=== PATIENT | female | born 1965 | race Asian ===

== ENCOUNTER 2016-08-01 14:51 | Outpatient (CLI) | payer BC | END 2016-08-01 14:52 | disposition home or self-care (01) | DX: M85.89 Other specified disorders of bone density and structure, multiple sites (principal); Z85.3 Personal history of malignant neoplasm of breast; Z79.811 Long term (current) use of aromatase inhibitors; Z78.0 Asymptomatic menopausal state ==

== ENCOUNTER 2016-08-16 01:27 | Emergency (ER) | payer BC ==
[2016-08-16] MEDS ORDERED: ONDANSETRON 4 MG/2 ML VIAL IVP STA (02:40)
[2016-08-16] MEDS ORDERED: SODIUM CHLORIDE 0.9% 1,000 ML IV STA (02:40)
[2016-08-16] MEDS ORDERED: ONDANSETRON 4 MG/2 ML VIAL ONE (02:51)
[2016-08-16] MEDS ORDERED: SODIUM CHLORIDE 0.9% 1,000 ML IV ONE (02:51)
[2016-08-16] MEDS ORDERED: HYDROmorphone 1 MG/ML SYRINGE ONE (02:59)
[2016-08-16] MEDS ORDERED: HYDROmorphone 1 MG/ML SYRINGE IVP STA (03:02)
[2016-08-16] MEDS ORDERED: ONDANSETRON ODT 4 MG Prepack 2 TL STA (05:40)
[2016-08-16] MEDS ORDERED: ONDANSETRON ODT 4 MG Prepack 2 TL ONE (05:43)
== END 2016-08-16 05:54 | disposition home or self-care (01) ==
DX: R10.13 Epigastric pain (principal); R10.11 Right upper quadrant pain; R11.2 Nausea with vomiting, unspecified; I10 Essential (primary) hypertension
CPT/HCPCS: 36415; 76705; 80053; 81001; 83690; 85025; 96361; 96374; 96375; 99284; J1170

== ENCOUNTER 2017-02-03 14:16 | Outpatient (CLI) | payer BC ==
--- NOTE | 2017-02-03 17:21 | Mammography Report ---
DIGITAL DIAGNOSTIC BILATERAL MAMMOGRAM: 02/03/2017 CLINICAL INDICATION: A 51-year-old with personal history of left breast cancer status post lumpectom y and radiation therapy. TECHNIQUE: Bilateral CC and MLO views, left true lateral view. COMPARISON: 01/22/2016, 01/18/2015, 01/18/2014, 07/08/2013, 12/14/2012, 01/09/2012, 12/12/2011, 11/25, 12/09/2009, 11/12/2008, 06/09/2007. The breasts again demonstrate scattered fibroglandular densities bilaterally. Postoperative and post -treatment changes in the left upper-outer quadrant are stable. A few coarse, typically benign calci fications are present. No suspicious masses, clustered microcalcifications, or regions of architectu ral distortion are identified. IMPRESSION: BENIGN FINDINGS. RECOMMENDATION: ROUTINE ANNUAL SCREENING UNLESS OTHERWISE CLINICALLY INDICATED. BIRADS CATEGORY: 2, BENIGN FINDINGS. STANDARD QUALIFYING STATEMENTS 1. This examination was reviewed with the aid of Computed-Aided Detection (CAD). 2. A negative or benign imaging report should not delay biopsy if clinically suspicious findings are present. Consider surgical consultation if warranted. More than 5% of cancers are not identified b y imaging. 3. Dense breasts may obscure an underlying neoplasm. JOB #: [id number] EXT JOB #:[id number]
== END 2017-02-03 14:17 | disposition home or self-care (01) ==
LOC: DI 14:16
PROVIDERS: ATTEND Internal Medicine Hematology & Oncology
DX: C50.912 Malignant neoplasm of unspecified site of left female breast (principal)
CPT/HCPCS: 77066

== ENCOUNTER 2018-02-16 15:54 | Outpatient (CLI) | payer BC ==
--- NOTE | 2018-02-18 08:35 | Mammography Report ---
Procedure Date: 02/16/2018 Accession Number: [id number] / [id number] Procedure: [facility] - Screening Mammo Dig Bilat CPT Code: FULL RESULT: EXAM: Screening Mammo Dig Bilat DATE: 02/16/2018 4:10 PM CLINICAL HISTORY: 52-year-old female with personal history of left breast cancer status post lumpectomy and radiation as well as a family history of breast cancer in an aunt at age 18. The patient presents for screening mammography. TECHNIQUE: Bilateral CC and MLO views were obtained. COMPARISON: 02/03/2017, 01/22/2016, 01/18/2015, 01/18/2014. FINDINGS: The breasts demonstrate scattered fibroglandular densities bilaterally. There are stable postoperative changes in the left breast. Typically benign coarse calcifications are identified. No suspicious masses, clustered microcalcifications, or regions of architectural distortion are identified. IMPRESSION: Benign findings RECOMMENDATION: Routine annual screening unless otherwise clinically indicated. BIRADS CATEGORY 2: Benign findings STANDARD QUALIFYING STATEMENTS: 1. This examination was reviewed with the aid of Computer-Aided Detection (CAD). 2. A negative or benign imaging report should not delay biopsy if clinically suspicious findings are present. Consider surgical consultation if warrented. More than 5% of cancers are not identified by imaging. 3. Dense breasts may obscure an underlying neoplasm.
== END 2018-02-16 15:55 | disposition home or self-care (01) ==
LOC: DI 15:54
PROVIDERS: ATTEND Internal Medicine Hematology & Oncology
DX: Z12.31 Encounter for screening mammogram for malignant neoplasm of breast (principal); Z08 Encounter for follow-up examination after completed treatment for malignant neoplasm; Z85.3 Personal history of malignant neoplasm of breast; Z80.3 Family history of malignant neoplasm of breast
CPT/HCPCS: 77067

== ENCOUNTER 2018-06-11 08:14 | Outpatient (CLI) | payer BC ==
[2018-06-11 11:03] LABS: ALBUMIN 3.9 g/dL (3.2-5.5); ALBUMIN/GLOBULIN RATIO 1.1 (1.0-2.2); ALKALINE PHOSPHATASE 61 IU/L (42-121); ALT ALANINE AMINOTRANSFERASE 23 IU/L (10-60); AST ASPARTATE AMINOTRANSFERASE 21 IU/L (10-42); BILIRUBIN,TOTAL 0.8 mg/dL (0.2-1.0); BUN - BLOOD UREA NITROGEN 24 mg/dL (6-20); CALCIUM 9.5 mg/dL (8.5-10.3); CARBON DIOXIDE - CO2 25 mmol/L (21-32); CHLORIDE 104 mmol/L (101-111); CHOL/HDL RATIO 3.8 (<4.4); CHOLESTEROL 214 mg/dL; CREATININE 0.9 mg/dL (0.4-1.0); GFR - MDRD 66 (>89); GLUCOSE 115 mg/dL (70-100); HDL CHOLESTEROL 56 mg/dL; LDL CHOLESTEROL,CALCULATED 113 mg/dL; SODIUM 138 mmol/L (135-145); TOTAL PROTEIN 7.3 g/dL (6.7-8.2); VLDL CHOLESTEROL 45 mg/dL
[2018-06-11 11:12] LABS: BASOPHILS % (AUTO) 0.5 %; EOSINOPHILS # (AUTO) 0.1 10^3/uL (0.0-0.7); EOSINOPHILS % (AUTO) 1.5 %; HGB - HEMOGLOBIN 13.2 g/dL (12.0-16.0); LYMPHOCYTES # (AUTO) 2.4 10^3/uL (1.5-3.5); LYMPHOCYTES % (AUTO) 37.5 %; MEAN CORPUSCULAR HEMOGLOBIN 29.1 pg (27.0-31.0); MEAN CORPUSCULAR HGB CONC 33.8 g/dL (32.0-36.0); MEAN CORPUSCULAR VOLUME 86.2 fL (81.0-99.0); MEAN PLATELET VOLUME 8.4 fL (7.9-10.8); MONOCYTES # (AUTO) 0.5 10^3/uL (0.0-1.0); MONOCYTES % (AUTO) 8.3 %; NEUTROPHILS # (AUTO) 3.4 10^3/uL (1.5-6.6); NEUTROPHILS % (AUTO) 52.2 %; PLT - PLATELET COUNT 273 10^3/uL (130-450); RED BLOOD COUNT 4.53 10^6/uL (4.20-5.40); RED CELL DISTRIBUTION WIDTH 13.4 % (12.0-15.0); WHITE BLOOD COUNT 6.4 x10^3/uL (4.8-10.8)
== END 2018-06-11 08:15 | disposition home or self-care (01) ==
LOC: LAB.F 08:14
PROVIDERS: ATTEND Nurse Practitioner Family
DX: D05.90 Unspecified type of carcinoma in situ of unspecified breast (principal); Z13.6 Encounter for screening for cardiovascular disorders; Z13.29 Encounter for screening for other suspected endocrine disorder; Z13.0 Encounter for screening for diseases of the blood and blood-forming organs and certain disorders involving the immune mechanism
CPT/HCPCS: 36415; 80053; 80061; 83721; 84443; 85025

== ENCOUNTER 2018-07-05 01:40 | Inpatient (IN) | payer BC ==
[2018-07-05 02:05] LABS: GLUCOSE, URINE (UA) NEGATIVE (NEGATIVE); KETONES,URINE (UA) 40 mg/dL (NEGATIVE); LEUKOCYTE ESTERASE, URINE NEGATIVE (NEGATIVE); NITRITE,URINE NEGATIVE (NEGATIVE); OCCULT BLOOD,URINE TRACE-INTA (NEGATIVE); PROTEIN,URINE >=300 mg/dL (NEGATIVE); UROBILINOGEN,URINE 0.2 (NORMAL) E.U./dL (NORMAL)
[2018-07-05 02:08] LABS: BASOPHILS % (AUTO) 0.2 %; HGB - HEMOGLOBIN 15.4 g/dL (12.0-16.0); LYMPHOCYTES # (AUTO) 2.1 10^3/uL (1.5-3.5); LYMPHOCYTES % (AUTO) 12.2 %; MEAN CORPUSCULAR HEMOGLOBIN 28.8 pg (27.0-31.0); MEAN CORPUSCULAR HGB CONC 33.6 g/dL (32.0-36.0); MEAN CORPUSCULAR VOLUME 85.7 fL (81.0-99.0); MEAN PLATELET VOLUME 8.1 fL (7.9-10.8); MONOCYTES # (AUTO) 1.1 10^3/uL (0.0-1.0); MONOCYTES % (AUTO) 6.6 %; NEUTROPHILS # (AUTO) 14.1 10^3/uL (1.5-6.6); PLT - PLATELET COUNT 370 10^3/uL (130-450); RED BLOOD COUNT 5.35 10^6/uL (4.20-5.40); RED CELL DISTRIBUTION WIDTH 13.4 % (12.0-15.0); WHITE BLOOD COUNT 17.4 x10^3/uL (4.8-10.8)
[2018-07-05 02:13] LABS: BILIRUBIN,URINE NEGATIVE (NEGATIVE); CLARITY,URINE CLEAR (CLEAR); ICTOTEST,URINE NEGATIVE
--- NOTE | 2018-07-05 02:13 | ED Physician Documentation ---
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 No: Fever, Diarrhea Similar symptoms before: Has not had sx before Recently seen: Not recently seen Review of Systems Constitutional: reports: Reviewed and negative Eyes: reports: Reviewed and negative Ears: reports: Reviewed and negative Nose: reports: Reviewed and negative Throat: reports: Reviewed and negative Cardiac: reports: Reviewed and negative Respiratory: reports: Reviewed and negative GI: reports: Abdominal Pain, Nausea, Vomiting. 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, Other Other Past Medical History: Breast CA - Past Surgical History Past Surgical History: Yes /PATTERN AND CHAIN MAKER: Hysterectomy, Other - Present Medications Home Medications: Ambulatory Orders Medication Instructions Recorded Confirmed Acetaminophen [Tylenol] 650 mg PO Q6H PRN 12/22/12 07/05/18 Ascorbic Acid [Vitamin C] 500 mg PO DAILY 12/22/12 07/05/18 Calcium Carbonate [Tums] 1,000 mg PO Q6HR PRN 12/22/12 07/05/18 Fish Oil/Dha/Epa [Fish Oil 1,200 1 each PO DAILY 12/22/12 07/05/18 mg Fish Oil] Ibuprofen [Motrin] 100 mg PO Q6H PRN 12/22/12 07/05/18 Multivitamin [Multivitamins] 1 each PO DAILY 12/22/12 07/05/18 Propranolol [Inderal] 20 mg PO BID 12/22/12 07/05/18 Vitamin B Complex 500 each PO DAILY 12/28/13 07/05/18 Cholecalciferol (Vitamin D3) 1,000 unit PO DAILY 06/28/14 07/05/18 [Vitamin D3] Estradiol [Vagifem] 1 tab PV Q7D 02/11/17 07/05/18 - Allergies Allergies/Adverse Reactions: Allergies Allergy/AdvReac Type Severity Reaction Status Date / Time Penicillins Allergy Rash Verified 07/05/18 01:48 - Social History Does the pt smoke?: No Smoking Status: Never smoker Does the pt drink ETOH?: No Does the pt have substance abuse?: No - Immunizations Immunizations are current?: No Immunizations: Other immun not current - POLST Patient has POLST: No PD ED PE NORMAL - Vitals Vital signs reviewed: Yes - General General: Alert and oriented X 3, Well developed/nourished, Other (appears uncomfortable due to pain) - HEENT HEENT: Other (dry mucous membranes) - Neck Neck: Supple, no meningeal sign - Cardiac Cardiac: No murmur - Respiratory Respiratory: No respiratory distress, Clear bilaterally - Abdomen Abdomen: Soft, Non distended, Other (epigastric and RLQ tenderness without rebound or guarding) - Back Back: No CVA TTP - Derm Derm: Normal color, Warm and dry - Extremities Extremities: No edema PD ED PE EXPANDED - Cardiac Cardiac: Tachy, Regular Rhythm Results - Vitals Vitals: Vital Signs - 24 hr 07/05/18 07/05/18 07/05/18 01:40 02:01 03:10 Temperature 37.3 C Heart Rate 122 H 112 H 107 H Respiratory 18 20 18 Rate Blood Pressure 140/92 H 152/102 H 153/94 H O2 Saturation 99 99 95 07/05/18 03:56 Temperature 36.9 C Heart Rate 118 H Respiratory 20 Rate Blood Pressure 132/119 H O2 Saturation 100 Oxygen O2 Source Room air - Labs Labs: Laboratory Tests 07/05/18 07/05/18 07/05/18 01:55 01:55 01:55 WBC 17.4 H RBC 5.35 Hgb 15.4 Hct 45.9 MCV 85.7 MCH 28.8 MCHC 33.6 RDW 13.4 Plt Count 370 MPV 8.1 Neut # (Auto) 14.1 H Lymph # (Auto) 2.1 [place] # (Auto) 1.1 H Eos # (Auto) 0.0 Baso # (Auto) 0.0 Absolute Nucleated RBC 0.00 Nucleated RBC % 0.0 Sodium 137 Potassium 4.1 Chloride 106 Carbon Dioxide 20 L Anion Gap 11.0 BUN 18 Creatinine 1.2 H Estimated GFR (MDRD) 47 L Glucose 169 H Calcium 9.6 Total Bilirubin 0.9 AST 22 ALT 24 Alkaline Phosphatase 69 Total Protein 7.8 Albumin 4.0 Globulin 3.8 Albumin/Globulin Ratio 1.1 Amylase Lipase 73 H Urine Color DARK YELLOW Urine Clarity CLEAR Urine pH 6.0 Ur Specific [place] >=1.030 H Urine Protein >=300 H Urine Glucose (UA) NEGATIVE Urine Ketones 40 H Urine Occult Blood TRACE-INTA Urine Nitrite NEGATIVE Urine Bilirubin NEGATIVE Urine Urobilinogen 0.2 (NORMAL) Ur Leukocyte Esterase NEGATIVE Urine RBC 0-5 Urine WBC 0-3 Ur Squamous Epith Cells MOD Squamous H Urine Bacteria Few Urine Casts 6-10 Granular Casts Ur Microscopic Review INDICATED Urine Culture Comments NOT INDICATED 07/05/18 01:55 WBC RBC Hgb Hct MCV MCH MCHC RDW Plt Count MPV Neut # (Auto) Lymph # (Auto) [place] # (Auto) Eos # (Auto) Baso # (Auto) Absolute Nucleated RBC Nucleated RBC % Sodium Potassium Chloride Carbon Dioxide Anion Gap BUN Creatinine Estimated GFR (MDRD) Glucose Calcium Total Bilirubin AST ALT Alkaline Phosphatase Total Protein Albumin Globulin Albumin/Globulin Ratio Amylase 183 H Lipase Urine Color Urine Clarity Urine pH Ur Specific [place] Urine Protein Urine Glucose (UA) Urine Ketones Urine Occult Blood Urine Nitrite Urine Bilirubin Urine Urobilinogen Ur Leukocyte Esterase Urine RBC Urine WBC Ur Squamous Epith Cells Urine Bacteria Urine Casts Ur Microscopic Review Urine Culture Comments - Rads (name of study) CT A/P Radiology: Prelim report reviewed, See rad report PD MEDICAL DECISION MAKING - ED course Complexity details: reviewed results, re-evaluated patient, considered differential, d/w patient Departure - Departure Disposition: 66 [facility] DC/Xfer Clinical Impression: Bowel obstruction Qualifiers: Intestinal obstruction type: unspecified Intestinal obstruction extent: unspecified extent Qualified Code(s): K56.609 - Unspecified intestinal obstruction, unspecified as to partial versus complete obstruction Condition: Stable Discharge Date/Time: 07/05/18 05:08
[2018-07-05 02:14] LABS: BACTERIA,URINE Few /HPF (None Seen); CASTS, URINE 6-10 Granular Casts /LPF; RBC,URINE 0-5 /HPF (0-5); SQUAMOUS EPITHELIAL CELL,UR MOD Squamous (<= Few)
[2018-07-05 02:16] LABS: ALBUMIN/GLOBULIN RATIO 1.1 (1.0-2.2); BILIRUBIN,TOTAL 0.9 mg/dL (0.2-1.0); CALCIUM 9.6 mg/dL (8.5-10.3); CREATININE 1.2 mg/dL (0.4-1.0); TOTAL PROTEIN 7.8 g/dL (6.7-8.2)
[2018-07-05] MEDS ORDERED: ONDANSETRON 4 MG/2 ML VIAL IVP STA (02:30)
[2018-07-05] MEDS ORDERED: HYDROmorphone 1 MG/ML CARPUJECT IVP STA ×2 (02:30→04:18)
[2018-07-05] MEDS ORDERED: SODIUM CHLORIDE 0.9% 1,000 ML IV STA (02:31)
[2018-07-05] MEDS ORDERED: IOVERSOL 320 100 ML VIAL IVP ONE ×2 (02:41→03:16)
--- NOTE | 2018-07-05 03:37 | CT Report ---
Reason: abd. pain Procedure Date: 07/05/2018 Accession Number: [id number] / [id number] Procedure: CT - Abdomen/Pelvis W/ CPT Code: FULL RESULT: EXAM: CT ABDOMEN AND PELVIS EXAM DATE: 07/05/2018 03:27 AM. CLINICAL HISTORY: Abd. pain. COMPARISONS: None. TECHNIQUE: Routine helical CT imaging was performed through the abdomen and pelvis. IV contrast: OPTIRAY 320 100mL. Enteric contrast: No. Reconstructions: Coronal and sagittal. In accordance with CT protocol optimization, one or more of the following dose reduction techniques were utilized for this exam: automated exposure control, adjustment of mA and/or KV based on patient size, or use of iterative reconstructive technique. FINDINGS: Lung Bases: Small hiatal hernia. Liver: Normal. No masses. Gallbladder/Bile Ducts: Unremarkable. Spleen: Normal. Pancreas: Normal. Adrenal Glands: Normal. Kidneys: Small cortical cysts. No hydronephrosis or nephrolithiasis. Peritoneal Cavity/Bowel: Proximal and distal small bowel are decompressed. There is marked dilation of mid small bowel loops, with an abrupt transition in the anterior lower midline abdomen, suspicious for a closed loop obstruction. Small amount of ascites. The appendix is well visualized and normal. Pelvic Organs: Normal. The bladder and visualized pelvic organs are within normal limits. Vasculature: No aneurysms or other significant abnormality. Bones: No significant abnormality. Other: None. IMPRESSION: Markedly dilated mid small bowel loops, with an abrupt transition in the lower midline abdomen anteriorly, with decompressed proximal and distal loops present, suspicious for a closed loop obstruction. Small amount of ascites. Normal appendix. RADIA
[2018-07-05] MEDS ORDERED: PROCHLORPERAZINE 10 MG/2 ML VIAL IVP PRN (04:07)
[2018-07-05] MEDS ORDERED: ZOLPIDEM 5 MG TABLET PO PRN (04:07)
[2018-07-05] MEDS ORDERED: LIDOCAINE JELLY 2% 5 ML TUBE TOP STA (04:14)
[2018-07-05] MEDS ORDERED: LIDOCAINE TOPICAL 4% 50 ML BOTTLE MM STA (04:18)
[2018-07-05] MEDS ORDERED: metroNIDAZOLE 500 MG/100 ML 500 MG/100 ML BAG IV SCH (05:00)
[2018-07-05] MEDS ORDERED: LACTATED RINGERS 1,000 ML IV SCH (05:00)
[2018-07-05] MEDS ORDERED: CIPROFLOXACIN 200 MG/100 ML 100 ML IV SCH (05:00)
--- NOTE | 2018-07-05 05:48 | HISTORY & PHYSICAL EXAMINATION ---
Chief Complaint - Chief Complaint Chief Complaint: Abdominal pain History of Present Illness - Admitted From Admitted From:: Emergency department - History Obtained From Records Reviewed: Emergency department records and other EMR records History obtained from: Patient and Dr. Ulloa, ED physician Exam Limitations: None - History of Present Illness HPI Comment/Other: Patient is a 53-year-old female with a past medical history of hypertension, left breast cancer diagnosed in 2016, total hysterectomy, who developed mid ab dominal pain on Friday evening, over the evening before she presented to the emergency room. She took a Tylenol thinking that it would pass however when she woke up the next morning, the day of her arrival at the emergency room, the abdominal pain was worse and she began to have nausea and vomiting. She estimates that she had about 15-20 episodes of emesis throughout the day primarily consisting of acidic liquid contents. The abdominal pain has been sharp, midepigastric, and crampy in nature. It is exacerbated by eating anything or even drinking anything and she has been unable to tolerate even p.o. liquids. She had a similar episode approximately 1 year ago in July 2007 18 where she went to the emergency room and describes her symptoms as similar to that however at that time it was presumed to be a viral gastroenteritis and she was discharged home without further workup. On this occasion however, the emergency room performed a CT scan of the abdomen which did show evidence of small bowel obstruction.Due to the patient's inability to tolerate p.o.'s, small bowel obstruction, with an elevated white blood cell count of 17, ED physician contacted the hospitalist service to admit the patient for further workup and care. 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 Currently not taking any treatment medication.), Other MRSA Hx?: No Other Past Medical History: Breast CA - Past Surgical History /PSYCHIATRIC NURSING ASSISTANT: reports: section, Hysterectomy, Other - Family & Social History Family History: Father: Hypertension Living arrangement: At home Living Situation: With family Social History Notes: Patient lives with her and 2 kids. She works at the [employer]. - Substance History Use: Uses substance without health or social issues: NONE Abuse: Recurrent use of substance despite neg consequences: NONE Dependence: Experiences withdrawal or developed tolerances: NONE - POLST Patient has POLST: No Meds/Allgy - Home Medications Home Medications: Ambulatory Orders Medication Instructions Recorded Confirmed Acetaminophen [Tylenol] 650 mg PO Q6H PRN 12/22/12 07/05/18 Ascorbic Acid [Vitamin C] 500 mg PO DAILY 12/22/12 07/05/18 Calcium Carbonate [Tums] 1,000 mg PO Q6HR PRN 12/22/12 07/05/18 Fish Oil/Dha/Epa [Fish Oil 1,200 1 each PO DAILY 12/22/12 07/05/18 mg Fish Oil] Ibuprofen [Motrin] 100 mg PO Q6H PRN 12/22/12 07/05/18 Multivitamin [Multivitamins] 1 each PO DAILY 12/22/12 07/05/18 Propranolol [Inderal] 20 mg PO BID 12/22/12 07/05/18 Vitamin B Complex 500 each PO DAILY 12/28/13 07/05/18 Cholecalciferol (Vitamin D3) 1,000 unit PO DAILY 06/28/14 07/05/18 [Vitamin D3] Estradiol [Vagifem] 1 tab PV Q7D 02/11/17 07/05/18 - Allergies Allergies/Adverse Reactions: Allergies Allergy/AdvReac Type Severity Reaction Status Date / Time Penicillins Allergy Rash Verified 07/05/18 01:48 Review of Systems - Constitutional Constitutional: reports: Fatigue, Weakness - Cardiovascular Cariovascular: denies: Chest pain, Lightheadedness, Syncope - Respiratory Respiratory: denies: Cough, SOB at rest - Gastrointestinal Gastrointestinal: reports: Abdominal pain, Abdominal distention, Nausea, Vomiting, Bloating, Poor appetite. denies: Constipation, Diarrhea, Change in bowel habits, Rectal bleeding, Black stools, Bloody stools, Bile emesis, Rocky blood emesis - Genitourinary Genitourinary: denies: Frequency, Urgency - Integumentary Integumentary: denies: Rash - Neurological Neurological: denies: General weakness, Focal weakness, Headache - All Other Systems All Other Systems: reports: Reviewed and negative Prior Level of Functionality: Independent Exam - Vital Signs Reviewed Vital Signs: Yes Vital Signs: Vital Signs x48h Temp Pulse Pulse Resp BP BP Pulse Ox 07/05/18 05:17 37.0 C 113 H 14 152/96 H 97 07/05/18 05:00 37.0 C 118 H 18 169/107 H 96 07/05/18 04:37 36.5 C 125 H 18 139/103 H 94 07/05/18 03:56 36.9 C 118 H 20 132/119 H 100 07/05/18 03:10 107 H 18 153/94 H 95 07/05/18 02:01 112 H 20 152/102 H 99 07/05/18 01:40 37.3 C 122 H 18 140/92 H 99 Vital Signs - 24 hr 07/05/18 07/05/18 07/05/18 01:40 02:01 03:10 Temperature 37.3 C Heart Rate 122 H 112 H 107 H Heart Rate [ Radial] Respiratory 18 20 18 Rate Blood Pressure 140/92 H 152/102 H 153/94 H Blood Pressure [Right Radial artery] O2 Saturation 99 99 95 07/05/18 07/05/18 07/05/18 03:56 04:37 05:00 Temperature 36.9 C 36.5 C 37.0 C Heart Rate 118 H 125 H 118 H Heart Rate [ Radial] Respiratory 20 18 18 Rate Blood Pressure 132/119 H 139/103 H 169/107 H Blood Pressure [Right Radial artery] O2 Saturation 100 94 96 07/05/18 05:17 Temperature 37.0 C Heart Rate Heart Rate [ 113 H Radial] Respiratory 14 Rate Blood Pressure Blood Pressure 152/96 H [Right Radial artery] O2 Saturation 97 - Physical Exam General Appearance: positive: No acute distress Eyes Bilateral: positive: Normal inspection ENT: positive: ENT inspection nml Neck: positive: Nml inspection Respiratory: positive: Chest non-tender Cardiovascular: positive: Regular rate & rhythm Peripheral Pulses: positive: 2+ Abdomen: positive: No organomegaly, Tenderness, Abnml bowel sounds, Other (Mildly distended, tenderness in the epigastric region with hypoactive bowel sounds). negative: Guarding, Rebound, Hepatomegaly, Splenomegaly Back: positive: Nml inspection Skin: positive: Color nml Extremities: positive: Non-tender, Full ROM, Nml appearance Neurologic/Psychiatric: positive: Oriented x3, CN's nml (2-12), Motor nml, Sensation nml, Mood/affect nml Conclusion/Plan - Problem List (1) Bowel obstruction Conclusion/Plan: CT scan with evidence of small bowel obstruction without perforation and possible closed loop of large bowel.Patient will be brought in for n.p.o., nasogastric suction, IV fluids, and probable surgical consult. Pending outcome of the NG tube, continue decompression versus surgical management. In the meantime, pain is well controlled with Dilaudid and nausea is well controlled with Zofran. Qualifiers: Intestinal obstruction type: unspecified Intestinal obstruction extent: unspecified extent Qualified Code(s): K56.609 - Unspecified intestinal obstruction, unspecified as to partial versus complete obstruction (2) HTN (hypertension) Conclusion/Plan: Blood pressure slightly elevated, possibly related to pain. We will hold all p.o. meds including her home propranolol. In the meantime, we will provide as needed metoprolol IV and continue to monitor. (3) Leukocytosis Conclusion/Plan: Patient with an elevated white blood cell count of unknown etiology. She does not have a fever and does not report any subjective fever or chills with infectious symptoms. Urinalysis does not suggest UTI. Given that she has had nausea and vomiting for the last 2 days with almost 0 p.o., this could be reactive leukocytosis however given her cancer history, and CT scan findings, I will start her on IV Cipro and Flagyl empirically for abdominal infection pending the clinical course and repeat labs tomorrow a.m. - Lab Results Lab results reviewed: Yes Tim Bones: 07/05/18 01:55 07/05/18 01:55 - Diagnostic Imaging Results Diagnostic Imaging Results: positive: Final report reviewed Core Measures - Anticipated LOS I expect patient to be DC'd or transferred within 96 hours.: Yes - DVT/VTE - Prophylaxis VTE/DVT Device ordered at admit?: Yes
[2018-07-05] MEDS ORDERED: METOPROLOL 5 MG/5 ML VIAL IVP PRN (05:53)
[2018-07-05] MEDS: PANTOPRAZOLE 40 MG VIAL IVP SCH (06:18)
[2018-07-05] MEDS: SODIUM CHLORIDE FLUSH 0.9% 10 ML SYRINGE IVP SCH ×3 (06:19→17:21)
[2018-07-05] MEDS ORDERED: ANASTROZOLE 1 MG TABLET PO SCH (09:00)
[2018-07-05] MEDS ORDERED: POLYETHYLENE GLYCOL 3350 17 GM PACKET PO SCH (09:00)
--- NOTE | 2018-07-05 09:19 | CONSULTATION NOTE ---
Referring Provider Name of Referring Provider:: Dr. Heaton Consult Date: 07/05/18 Chief Complaint - Chief Complaint Chief Complaint: abd pain, N/V History of Present Illness - Admitted From Admitted From:: ER - History Obtained From Records Reviewed: yes History obtained from: pt, records Exam Limitations: none - History of Present Illness HPI Comment/Other: 53 yo female who noted sudden onset of crampy periumbilical abdominal pain 36 hours ago associated with repeated episodes of N/V of nonbloody material, prompting evaluation in the ER last night and subsequent admission. Hx change in diet to high fiber recenty. Had milder similar episode in July for which she was seen in the ER and diagnosed with a viral syndrome and treated/released. Her last bm was yesterday morning and was nonbloody, small and loose; no bm's or flatus since. No fever/chills, recent wt loss. She is s/p TH/BSO for benign disease in 2011 and remote prior C/S. An NG tube was placed in the ER last night. She reports feeling much better now with pain level down from 8 to 1 at present. No or respiratory sx. Evaluation in the ER included a CT scan of the abd/pelvis showing markedly dilated loops of mid-small bowel without proximal or distal dilatation suggestive of SBO, possibly closed loop in nature. No other significant abnormalities were noted. Surgical consultation was requested. History - Past Medical History Cardiovascular: reports: Hypertension [employer]: reports: Fibroids, Breast cancer (Left; treated with breast conservation surgery and xrt in 2012 followed by 5 yrs of anastrozole; thought to be RENATA) MRSA Hx?: No Other Past Medical History: Breast CA - Past Surgical History /[employer]OR: reports: section, Hysterectomy (benign disease), Oophrectomy (benign disease), Other (left breast ca conservation surgery and xrt in 2011 followed by 5 yrs of anastrozole; thought to be RENATA) - Family & Social History Family History: Father: Hypertension Living arrangement: At home Living Situation: With family Social History Notes: Patient lives with her and 2 kids. She works at the [employer]. - Substance History Use: Uses substance without health or social issues: NONE Abuse: Recurrent use of substance despite neg consequences: NONE Dependence: Experiences withdrawal or developed tolerances: NONE - POLST Patient has POLST: No Meds/Allgy - Home Medications Home Medications: Ambulatory Orders Medication Instructions Recorded Confirmed Acetaminophen [Tylenol] 650 mg PO Q6H PRN 12/22/12 07/05/18 Ascorbic Acid [Vitamin C] 500 mg PO DAILY 12/22/12 07/05/18 Calcium Carbonate [Tums] 1,000 mg PO Q6HR PRN 12/22/12 07/05/18 Fish Oil/Dha/Epa [Fish Oil 1,200 1 each PO DAILY 12/22/12 07/05/18 mg Fish Oil] Ibuprofen [Motrin] 100 mg PO Q6H PRN 12/22/12 07/05/18 Multivitamin [Multivitamins] 1 each PO DAILY 12/22/12 07/05/18 Propranolol [Inderal] 20 mg PO BID 12/22/12 07/05/18 Vitamin B Complex 500 each PO DAILY 12/28/13 07/05/18 Cholecalciferol (Vitamin D3) 1,000 unit PO DAILY 06/28/14 07/05/18 [Vitamin D3] Estradiol [Vagifem] 1 tab PV Q7D 02/11/17 07/05/18 - Allergies Allergies/Adverse Reactions: Allergies Allergy/AdvReac Type Severity Reaction Status Date / Time Penicillins Allergy Rash Verified 07/05/18 01:48 Review of Systems - Constitutional Constitutional: denies: Fever, Chills, Weight loss - Cardiovascular Cariovascular: denies: Chest pain - Respiratory Respiratory: denies: Cough - Gastrointestinal Gastrointestinal: reports: Abdominal pain, Change in bowel habits (loose stool yesterday; no flatus or stool since), Nausea, Vomiting, Bile emesis, Poor appetite. denies: Rectal bleeding, Black stools, Bloody stools, Rocky blood emesis, Coffee grounds emesis, Reflux/heartburn - Hematologic/Lymphatic Hematologic/Lymphatic: denies: Bleeding tendencies - All Other Systems All Other Systems: reports: Reviewed and negative Exam - Vital Signs Reviewed Vital Signs: Yes Vital Signs: Vital Signs x48h Temp Pulse Pulse Resp BP BP Pulse Ox 07/05/18 08:46 36.8 C 109 H 18 130/81 H 97 07/05/18 05:17 37.0 C 113 H 14 152/96 H 97 07/05/18 05:00 37.0 C 118 H 18 169/107 H 96 07/05/18 04:37 36.5 C 125 H 18 139/103 H 94 07/05/18 03:56 36.9 C 118 H 20 132/119 H 100 07/05/18 03:10 107 H 18 153/94 H 95 07/05/18 02:01 112 H 20 152/102 H 99 07/05/18 01:40 37.3 C 122 H 18 140/92 H 99 - Physical Exam General Appearance: positive: Alert, Mild distress Eyes Bilateral: positive: Conjunctivae nml, No scleral icterus ENT: positive: Pharynx nml, No signs of dehydration Neck: positive: Nml inspection, No JVD. negative: Lymphadenopathy (R), Lymphadenopathy (L) Respiratory: positive: Chest non-tender, No respiratory distress, Breath sounds nml. negative: Wheezes, Rales, Rhonchi Cardiovascular: positive: Regular rate & rhythm, No murmur, No gallop Abdomen: positive: Non-tender, No organomegaly, Abnml bowel sounds (hypoactive at present), Other (obese; unable to ascertain distention) Skin: positive: Color nml, No rash, Warm, Dry. negative: Cyanosis Extremities: positive: Non-tender, Nml appearance, No pedal edema. negative: Calf tenderness Neurologic/Psychiatric: positive: Oriented x3 Conclusion/Plan - Diagnosis Diagnosis: Abdominal pain, N/V likely due to SBO, mechanical, likely related to adhesions from prior surgery; doubt neoplasm. Clinically she has a benign a bdomen and no evidence of strangulation obstruction at present. Hx Breast cancer, clinically RENATA at present. - Plan Plan: Agree with admission, bowel rest, NG suction, IVF, observation. Would d/c antibiotics and obtain a gastrograffin SBFT to ascertain the degree of obstruction and potential need for surgery. Will follow. Thanks. - Lab Results Lab results reviewed: Yes Fish Bones: 07/05/18 01:55 07/05/18 01:55 Other Lab Results: LFTs nl; mild elevation of lipase/amylase - Diagnostic Imaging Results Diagnostic Imaging Results: positive: Final report reviewed, Read independently Diagnostic Imaging Results Comments: See HPI
--- NOTE | 2018-07-05 09:39 | XRAY Report ---
Reason: ng tube placed, confirm position Procedure Date: 07/05/2018 Accession Number: [id number] / [id number] Procedure: XR - Chest 1 View X-Ray CPT Code: 89778 FULL RESULT: EXAM: CHEST RADIOGRAPHY EXAM DATE: 07/05/2018 09:23 AM. CLINICAL HISTORY: Ng tube placed, confirm position. COMPARISON: Chest radiograph 08/16/2016. TECHNIQUE: 1 view. FINDINGS: Lungs/Pleura: No focal opacity. No effusions. Mediastinum: Stable Other: NG tube with the tip in the gastric fundus. Left chest surgical clips. Distended bowel loops over the upper abdomen IMPRESSION: 1. NG tube tip is in the gastric fundus 2. Distended small bowel loops over the upper abdomen RADIA
[2018-07-05] MEDS: LACTATED RINGERS 1,000 ML IV SCH ×2 (13:38→17:21)
[2018-07-05] MEDS: HYDROmorphone 1 MG/ML CARPUJECT IVP PRN ×2 (13:40→17:20)
[2018-07-05] MEDS: ONDANSETRON 4 MG/2 ML VIAL IVP PRN (13:43)
[2018-07-05] MEDS: METOPROLOL 5 MG/5 ML VIAL IVP SCH ×2 (13:47→22:02)
--- NOTE | 2018-07-05 14:55 | XRAY Report ---
Reason: f/u sbo Procedure Date: 07/05/2018 Accession Number: [id number] / [id number] Procedure: XR - Abdomen 2 View X-Ray CPT Code: 50616 FULL RESULT: EXAM: ABDOMEN RADIOGRAPHY EXAM DATE: 07/05/2018 10:06 AM. CLINICAL HISTORY: F/u sbo. COMPARISON: ABDOMEN/PELVIS W/ 07/05/2018 3:07 AM. TECHNIQUE: 2 views. Contrast administered through the enteric tube. FINDINGS: Lung Bases: Unremarkable. Bowel Gas Pattern: There is contrast in the stomach, duodenum and a few loops of jejunum. There are moderately distended loops of gas-filled small bowel in the midabdomen. Free Air: None. Other: None. IMPRESSION: Contrast is present in the stomach, duodenum, and a few loops of jejunum. Moderately distended loops of gas-filled small bowel in the midabdomen. RADIA
--- NOTE | 2018-07-05 16:04 | XRAY Report ---
Reason: f/u sbo Procedure Date: 07/05/2018 Accession Number: [id number] / [id number] Procedure: XR - Abdomen 1 View X-Ray CPT Code: 13969 FULL RESULT: EXAM: ABDOMEN RADIOGRAPHY EXAM DATE: 07/05/2018 02:08 PM. CLINICAL HISTORY: F/u sbo. COMPARISON: Previous exam of the same date at 9:56 AM. TECHNIQUE: 1 view. FINDINGS: Bowel Gas Pattern: Enteric contrast is seen in mildly dilated loops of small bowel. No evidence of contrast is seen in the colon, where there is evidence of stool and likely air. Other: No gross free air demonstrated. NG tube terminates in the stomach. IMPRESSION: Enteric contrast seen in mildly dilated loops of small bowel to suggest low-grade partial small bowel obstruction. RADIA
--- NOTE | 2018-07-05 22:08 | XRAY Report ---
Reason: f/u sbo Procedure Date: 07/05/2018 Accession Number: [id number] / [id number] Procedure: XR - Abdomen 1 View X-Ray CPT Code: 04902 FULL RESULT: EXAM: ABDOMEN RADIOGRAPHY EXAM DATE: 07/05/2018 09:57 PM. CLINICAL HISTORY: F/u sbo. COMPARISON: ABDOMEN 1 VIEW 07/05/2018 1:55 PM ABDOMEN 2 VIEW 07/05/2018 9:56 AM. TECHNIQUE: 1 view. FINDINGS: Bowel Gas Pattern: Persistent gaseous dilatation of small bowel loops. No evident contrast in the colon. Other: Nasogastric tube in the stomach. IMPRESSION: Persistent small bowel obstruction pattern, with no oral contrast in the colon at 12 hours. RADIA
[2018-07-06] MEDS: ONDANSETRON 4 MG/2 ML VIAL IVP PRN (00:10)
[2018-07-06] MEDS: HYDROmorphone 1 MG/ML CARPUJECT IVP PRN (00:13)
[2018-07-06] MEDS: LACTATED RINGERS 1,000 ML IV SCH ×3 (00:29→15:41)
[2018-07-06] MEDS: SODIUM CHLORIDE FLUSH 0.9% 10 ML SYRINGE IVP SCH ×4 (00:57→23:32)
[2018-07-06 05:47] LABS: HGB - HEMOGLOBIN 12.6 g/dL (12.0-16.0); MEAN CORPUSCULAR HEMOGLOBIN 28.5 pg (27.0-31.0); MEAN CORPUSCULAR HGB CONC 32.1 g/dL (32.0-36.0); MEAN CORPUSCULAR VOLUME 88.6 fL (81.0-99.0); MEAN PLATELET VOLUME 7.6 fL (7.9-10.8); RED BLOOD COUNT 4.43 10^6/uL (4.20-5.40); RED CELL DISTRIBUTION WIDTH 13.6 % (12.0-15.0); WHITE BLOOD COUNT 11.8 x10^3/uL (4.8-10.8)
[2018-07-06 06:01] LABS: ALBUMIN 3.2 g/dL (3.2-5.5); ALBUMIN/GLOBULIN RATIO 1.1 (1.0-2.2); BILIRUBIN,TOTAL 0.8 mg/dL (0.2-1.0); CALCIUM 8.6 mg/dL (8.5-10.3); CREATININE 1.1 mg/dL (0.4-1.0); TOTAL PROTEIN 6.1 g/dL (6.7-8.2)
[2018-07-06] MEDS: METOPROLOL 5 MG/5 ML VIAL IVP SCH ×3 (06:08→19:59)
[2018-07-06] MEDS: PANTOPRAZOLE 40 MG VIAL IVP SCH (06:14)
[2018-07-06] MEDS: SODIUM CHLORIDE FLUSH 0.9% 10 ML SYRINGE IVP PRN ×2 (06:15→16:40)
--- NOTE | 2018-07-06 08:48 | PROVIDER PROGRESS NOTE ---
Subjective - Prog Note Date Prog Note Date: 07/06/18 Prog Note Time: 08:48 - Subjective Pt reports feeling: Improved Subjective: Rashida states that her hands are feeling a little tight from too much fluid. She denies a new cough, shortness of breath, or a rash. She states that her overall condition is somewhat better with improved pain/nausea control. Current Medications - Current Medications Current Medications: Active Medications Enalaprilat (Vasotec Inj) 1.25 mg IVP 0400,1000,1600,2200 [facility] Last Admin: 07/06/18 16:40 Dose: 1.25 mg Hydromorphone HCl (Dilaudid Inj Carp) 1 mg IVP Q2H PRN PRN Reason: Pain 8 to 10 Last Admin: 07/06/18 00:13 Dose: 1 mg Acetaminophen (Ofirmev) 100 mls @ 400 mls/hr IV Q6HR PRN PRN Reason: PAIN Last Infusion: 07/06/18 10:15 Dose: Infused Lactated Ringer's (Lr) 1,000 mls @ 100 mls/hr IV .Q10H [facility] Last Admin: 07/06/18 15:41 Dose: 100 mls/hr Ketorolac Tromethamine (Toradol Inj (30mg)) 30 mg IVP Q6HR PRN PRN Reason: PAIN Stop: 07/11/18 14:03 Metoprolol Tartrate (Lopressor Inj) 5 mg IVP Q8H [facility] Last Admin: 07/06/18 13:06 Dose: 5 mg Ondansetron HCl (Zofran Inj) 4 mg IVP Q6HR PRN PRN Reason: Nausea / Vomiting Last Admin: 07/06/18 00:10 Dose: 4 mg Pantoprazole Sodium (Protonix) 40 mg IVP QDAC [facility] Last Admin: 07/06/18 06:14 Dose: 40 mg Prochlorperazine Edisylate (Compazine Inj) 10 mg IVP Q6HR PRN PRN Reason: Nausea / Vomiting Last Admin: 07/05/18 17:21 Dose: 10 mg Sodium Chloride (Normal Saline Flush 0.9%) 10 ml IVP PRN PRN PRN Reason: NEEDED PER PROVIDER ORDERS Last Admin: 07/06/18 16:40 Dose: 10 ml Sodium Chloride (Normal Saline Flush 0.9%) 10 ml IVP 0100,0900,1700 CRISTINA Last Admin: 07/06/18 15:42 Dose: Not Given Zolpidem Tartrate (Ambien) 5 mg PO QPM PRN PRN Reason: Insomnia Acetaminophen [Tylenol] 650 mg PO Q6H PRN 12/22/12 Ascorbic Acid [Vitamin C] 500 mg PO DAILY 12/22/12 Calcium Carbonate [Tums] 1,000 mg PO Q6HR PRN 12/22/12 Fish Oil/Dha/Epa [Fish Oil 1,200 mg Fish Oil] 1 each PO DAILY 12/22/12 Ibuprofen [Motrin] 100 mg PO Q6H PRN 12/22/12 Multivitamin [Multivitamins] 1 each PO DAILY 12/22/12 Propranolol [Inderal] 20 mg PO BID 12/22/12 Vitamin B Complex 500 each PO DAILY 12/28/13 Cholecalciferol (Vitamin D3) [Vitamin D3] 1,000 unit PO DAILY 06/28/14 Estradiol [Vagifem] 1 tab PV Q7D 02/11/17 Objective - Vital Signs/Intake & Output Reviewed Vital Signs: Yes Vital Signs: Vital Signs x48h Temp Pulse Resp BP BP Pulse Ox 07/06/18 06:08 151/90 H 07/06/18 05:20 36.8 C 104 H 16 151/90 H 94 Intake & Output: Intake & Output 07/03/18 07/04/18 07/05/18 07/06/18 23:59 23:59 23:59 23:59 Intake Total 2913.500 1092.5 Output Total 50 100 Balance 2863.500 992.5 - Objective General Appearance: positive: Alert, Mild distress, Lethargic Eyes Bilateral: positive: PERRL ENT: positive: Pharynx nml, No signs of dehydration Neck: positive: Thyroid nml, No JVD, Trachea midline Respiratory: positive: Chest non-tender, No respiratory distress, Breath sounds nml Cardiovascular: positive: Regular rate & rhythm, No gallop Peripheral Pulses: 1+ Radial (R), 1+ Radial (L) Abdomen: positive: Tenderness, Guarding, Abnml bowel sounds, Other (rounded, soft) Back: positive: Nml inspection Skin: positive: No rash, Warm, Dry Extremities: positive: Non-tender, Full ROM, Nml appearance, No pedal edema Neurologic/Psychiatric: positive: Oriented x3, CN's nml (2-12), Motor nml, Sensation nml, Mood/affect nml Reflexes: Bicep (R): 3+, Bicep (L): 3+ - Lab Results Fish Bones: 07/06/18 05:40 07/06/18 05:40 Other Labs: Lab Results x24hrs 07/06/18 07/06/18 Range/Units 05:40 05:40 WBC 11.8 H (4.8-10.8) x10^3/uL RBC 4.43 (4.20-5.40) 10^6/uL Hgb 12.6 (12.0-16.0) g/dL Hct 39.2 (37.0-47.0) % MCV 88.6 (81.0-99.0) fL MCH 28.5 (27.0-31.0) pg MCHC 32.1 (32.0-36.0) g/dL RDW 13.6 (12.0-15.0) % Plt Count 254 (130-450) 10^3/uL MPV 7.6 L (7.9-10.8) fL Sodium 139 (135-145) mmol/L Potassium 3.8 (3.5-5.0) mmol/L Chloride 108 (101-111) mmol/L Carbon Dioxide 24 (21-32) mmol/L Anion Gap 7.0 (6-13) BUN 20 (6-20) mg/dL Creatinine 1.1 H (0.4-1.0) mg/dL Estimated GFR (MDRD) 52 L (>89) Glucose 108 H (70-100) mg/dL Calcium 8.6 (8.5-10.3) mg/dL Total Bilirubin 0.8 (0.2-1.0) mg/dL AST 15 (10-42) IU/L ALT 17 (10-60) IU/L Alkaline Phosphatase 50 (42-121) IU/L Total Protein 6.1 L (6.7-8.2) g/dL Albumin 3.2 (3.2-5.5) g/dL Globulin 2.9 (2.1-4.2) g/dL Albumin/Globulin Ratio 1.1 (1.0-2.2) Amylase 70 (28-100) U/L Lipase 27 (22-51) U/L - Diagnostic Imaging Diagnostic Imaging Results: positive: Final report reviewed Diagnostic Imaging Comments: EXAM: ABDOMEN RADIOGRAPHY EXAM DATE: 07/06/2018 11:02 AM. FINDINGS: Bowel Gas Pattern: Multiple dilated small bowel loops are again seen with interval decrease in previously seen large bowel gas. Persistence of a small amount of bowel gas in the rectal fossa suggests that the obstruction is possibly partial. The maximum caliber of small bowel loops now measures up to 3.6 cm, previously 3.4 cm. IMPRESSION: Persistent small bowel obstruction, possibly partial. ABX Reporting Has patient been on IV antibiotics over the past 48 hours?: No Sepsis Event Note (H) - Evaluation Current Stage of Sepsis: Ruled out Assessment/Plan - Problem List (1) Bowel obstruction Impression: Clinically improving since admission. Less active bowel sound to her RLQ, soft, rounded and less tenderness on exam today. She admits to +flatus and I have encouraged her to ambulate when ever possible to get her bowels moving. Plan: Continue NG to LIS. Treat nausea and abdominal pain, incentive s pirometry to prevent pneumonia. General surgery is following. Qualifiers: Intestinal obstruction type: obstruction due to adhesions Intestinal obstruction extent: partial Qualified Code(s): K56.51 - Intestinal adhesions [bands], with partial obstruction (2) Nausea Impression: The patient is having a moderate amount of gastric contents out of her NG and her nausea is improved since last evening. Plan: Continue to monitor and encourage ambulation. (3) HTN (hypertension) Impression: The patient has baseline HTN and is prescribed propranolol at home, which is on hold given her NPO status. I have added scheduled IV enalapril today with her B/P being 151/90 this morning. This is likely related to her acute illness. Plan: Continue to monitor and treat accordingly. Qualifiers: Hypertension type: essential hypertension Qualified Code(s): I10 - Essential (primary) hypertension (4) Abdominal pain Impression: The patient admits to mid, and left lower abdominal pain that comes and goes. She has been getting dilaudid for this, with good results. I have added IV tylenol for better pain control which has made a big improvement. Plan: Continue to treat pain and encourage ambulation. Qualifiers: Abdominal location: upper abdomen, unspecified Qualified Code(s): R10.10 - Upper abdominal pain, unspecified
[2018-07-06] MEDS ORDERED: ENALAPRILAT 1.25 MG/ML VIAL IVP SCH (09:00)
[2018-07-06] MEDS ORDERED: ACETAMINOPHEN 1,000 MG/100 ML 100 ML IV PRN (09:13)
--- NOTE | 2018-07-06 11:37 | PROVIDER PROGRESS NOTE ---
Assessment/Plan - Problem List (1) Bowel obstruction Qualifiers: Intestinal obstruction type: obstruction due to adhesions Intestinal obstruction extent: partial Qualified Code(s): K56.51 - Intestinal adhesions [bands], with partial obstruction Assessment/Plan: Clinically improving, abdomen remains benign; passing flatus. Rec: continue present management; will follow. - Current Meds Current Meds: Current Medications Generic Name Dose Route Start Last Admin Trade Name Freq PRN Reason Stop Dose Admin Enalaprilat 1.25 mg 07/06/18 09:00 07/06/18 10:04 Vasotec Inj IVP 1.25 mg Q6HR CRISTINA Administration Hydromorphone HCl 1 mg 07/05/18 04:07 07/06/18 00:13 Dilaudid Inj Carp IVP 1 mg Q2H PRN Administration Pain 8 to 10 Lactated Ringer's 1,000 mls @ 150 mls/hr 07/05/18 13:02 07/06/18 08:14 Lr IV 150 mls/hr .Q6H40M CRISTINA Administration Acetaminophen 100 mls @ 400 mls/hr 07/06/18 09:13 07/06/18 09:57 Ofirmev IV 400 mls/hr Q6HR PRN Administration PAIN Metoprolol Tartrate 5 mg 07/05/18 13:02 07/06/18 06:08 Lopressor Inj IVP 5 mg Q8H CRISTINA Administration Ondansetron HCl 4 mg 07/05/18 04:07 07/06/18 00:10 Zofran Inj IVP 4 mg Q6HR PRN Administration Nausea / Vomiting Pantoprazole Sodium 40 mg 07/05/18 07:00 07/06/18 06:14 Protonix IVP 40 mg QDAC CRISTINA Administration Prochlorperazine Edisylate 10 mg 07/05/18 04:07 07/05/18 17:21 Compazine Inj IVP 10 mg Q6HR PRN Administration Nausea / Vomiting Sodium Chloride 10 ml 07/05/18 04:07 07/06/18 06:15 Normal Saline Flush 0.9% IVP 10 ml PRN PRN Administration NEEDED PER PROVIDER ORDERS Sodium Chloride 10 ml 07/05/18 09:00 07/06/18 08:14 Normal Saline Flush 0.9% IVP Not Given 0100,0900,1700 CRISTINA - Lab Result Fish Bone Diagrams: 07/06/18 05:40 07/06/18 05:40 - Diagnostic Imaging Results Diagnostic Imaging Results: Read independently Diagnostic Imaging Results Comments: gastrograffin challenge film this am: no contrast visible in colon to my exam; mod dilated small bowel; air in colon. c/w partial high grade sbo, ? improving. - Additional Planning My Orders: My Active Orders 07/06/18 10:03 Abdomen 1 View X-Ray [XR] Routine Subjective - Subjective Patient Reports: Feeling Better, Resting Comfortably, No Complaints, Other (LAST PAIN MED DOSE WAS 10 PM YESTERDAY) Objective Vital Signs: Vital Signs - 24 hr 07/05/18 07/05/18 07/05/18 13:47 13:50 13:55 Temperature Heart Rate [ 106 H 91 Radial] Respiratory Rate Blood Pressure 147/91 H Blood Pressure [Right Brachial artery] Blood Pressure 147/91 H 141/88 H [Right Radial artery] O2 Saturation 07/05/18 07/05/18 07/05/18 14:00 14:15 14:30 Temperature Heart Rate [ 91 93 91 Radial] Respiratory Rate Blood Pressure Blood Pressure [Right Brachial artery] Blood Pressure 127/77 131/90 H 129/79 [Right Radial artery] O2 Saturation 07/05/18 07/05/18 07/05/18 14:45 16:00 17:33 Temperature 37.2 C 36.8 C Heart Rate [ 91 97 84 Radial] Respiratory 16 17 Rate Blood Pressure Blood Pressure [Right Brachial artery] Blood Pressure 136/81 H 132/89 H 144/90 H [Right Radial artery] O2 Saturation 95 91 L 07/05/18 07/05/18 07/05/18 17:36 19:45 22:02 Temperature 36.7 C Heart Rate [ 91 Radial] Respiratory 18 Rate Blood Pressure 152/77 H Blood Pressure [Right Brachial artery] Blood Pressure 150/90 H [Right Radial artery] O2 Saturation 95 99 07/05/18 07/05/18 07/05/18 22:10 22:14 22:24 Temperature Heart Rate [ 92 79 89 Radial] Respiratory Rate Blood Pressure Blood Pressure 152/85 H 155/82 H 135/84 H [Right Brachial artery] Blood Pressure [Right Radial artery] O2 Saturation 95 96 07/05/18 07/05/18 07/06/18 22:43 23:55 05:20 Temperature 36.9 C 36.8 C Heart Rate [ 83 98 104 H Radial] Respiratory 16 16 Rate Blood Pressure Blood Pressure 144/78 H 149/80 H 151/90 H [Right Brachial artery] Blood Pressure [Right Radial artery] O2 Saturation 97 94 07/06/18 07/06/18 06:08 08:51 Temperature 37.1 C Heart Rate [ 98 Radial] Respiratory 16 Rate Blood Pressure 151/90 H Blood Pressure 149/121 H [Right Brachial artery] Blood Pressure [Right Radial artery] O2 Saturation 95 Oxygen O2 Source Room air I&O (Last 24 Hrs): Intake and Output Totals x24h 07/04/18 07/05/18 07/06/18 23:59 23:59 23:59 Intake Total 2913.500 1092.5 Output Total 50 100 Balance 2863.500 992.5 General: Alert, Oriented x3, Cooperative Neck: No JVD Neuro: Alert Abdomen: Soft, No tenderness, No hepatospenomegaly, No masses, Other (hyperactive bowel tones) Extremities: No edema, No tenderness/swelling - Results Results: Laboratory Results WBC 11.8 x10^3/uL (4.8-10.8) H 07/06/18 05:40 RBC 4.43 10^6/uL (4.20-5.40) 07/06/18 05:40 Hgb 12.6 g/dL (12.0-16.0) 07/06/18 05:40 Hct 39.2 % (37.0-47.0) 07/06/18 05:40 MCV 88.6 fL (81.0-99.0) 07/06/18 05:40 MCH 28.5 pg (27.0-31.0) 07/06/18 05:40 MCHC 32.1 g/dL (32.0-36.0) 07/06/18 05:40 RDW 13.6 % (12.0-15.0) 07/06/18 05:40 Plt Count 254 10^3/uL (130-450) 07/06/18 05:40 MPV 7.6 fL (7.9-10.8) L 07/06/18 05:40 Neut # (Auto) 14.1 10^3/uL (1.5-6.6) H 07/05/18 01:55 Lymph # (Auto) 2.1 10^3/uL (1.5-3.5) 07/05/18 01:55 [place] # (Auto) 1.1 10^3/uL (0.0-1.0) H 07/05/18 01:55 Eos # (Auto) 0.0 10^3/uL (0.0-0.7) 07/05/18 01:55 Baso # (Auto) 0.0 10^3/uL (0.0-0.1) 07/05/18 01:55 Absolute Nucleated RBC 0.00 x10^3/uL 07/05/18 01:55 Nucleated RBC % 0.0 /100WBC 07/05/18 01:55 Sodium 139 mmol/L (135-145) 07/06/18 05:40 Potassium 3.8 mmol/L (3.5-5.0) 07/06/18 05:40 Chloride 108 mmol/L (101-111) 07/06/18 05:40 Carbon Dioxide 24 mmol/L (21-32) 07/06/18 05:40 Anion Gap 7.0 (6-13) 07/06/18 05:40 BUN 20 mg/dL (6-20) 07/06/18 05:40 Creatinine 1.1 mg/dL (0.4-1.0) H 07/06/18 05:40 Estimated GFR (MDRD) 52 (>89) L 07/06/18 05:40 Glucose 108 mg/dL (70-100) H 07/06/18 05:40 Calcium 8.6 mg/dL (8.5-10.3) 07/06/18 05:40 Total Bilirubin 0.8 mg/dL (0.2-1.0) 07/06/18 05:40 AST 15 IU/L (10-42) 07/06/18 05:40 ALT 17 IU/L (10-60) 07/06/18 05:40 Alkaline Phosphatase 50 IU/L (42-121) 07/06/18 05:40 Total Protein 6.1 g/dL (6.7-8.2) L 07/06/18 05:40 Albumin 3.2 g/dL (3.2-5.5) 07/06/18 05:40 Globulin 2.9 g/dL (2.1-4.2) 07/06/18 05:40 Albumin/Globulin Ratio 1.1 (1.0-2.2) 07/06/18 05:40 Amylase 70 U/L (28-100) 07/06/18 05:40 Lipase 27 U/L (22-51) 07/06/18 05:40 Urine Color DARK YELLOW 07/05/18 01:55 Urine Clarity CLEAR (CLEAR) 07/05/18 01:55 Urine pH 6.0 PH (5.0-7.5) 07/05/18 01:55 Ur Specific [place] >=1.030 (1.002-1.030) H 07/05/18 01:55 Urine Protein >=300 mg/dL (NEGATIVE) H 07/05/18 01:55 Urine Glucose (UA) NEGATIVE mg/dL (NEGATIVE) 07/05/18 01:55 Urine Ketones 40 mg/dL (NEGATIVE) H 07/05/18 01:55 Urine Occult Blood TRACE-INTA (NEGATIVE) 07/05/18 01:55 Urine Nitrite NEGATIVE (NEGATIVE) 07/05/18 01:55 Urine Bilirubin NEGATIVE (NEGATIVE) 07/05/18 01:55 Urine Urobilinogen 0.2 (NORMAL) E.U./dL (NORMAL) 07/05/18 01:55 Ur Leukocyte Esterase NEGATIVE (NEGATIVE) 07/05/18 01:55 Urine RBC 0-5 /HPF (0-5) 07/05/18 01:55 Urine WBC 0-3 /HPF (0-5) 07/05/18 01:55 Ur Squamous Epith Cells MOD Squamous (<= Few) H 07/05/18 01:55 Urine Bacteria Few /HPF (None Seen) 07/05/18 01:55 Urine Casts 6-10 Granular Casts /LPF 07/05/18 01:55 Ur Microscopic Review INDICATED 07/05/18 01:55 Urine Culture Comments NOT INDICATED 07/05/18 01:55 ABX Reporting Has patient been on IV antibiotics over the past 48 hours?: No
--- NOTE | 2018-07-06 11:42 | XRAY Report ---
Reason: f/u sbo Procedure Date: 07/06/2018 Accession Number: [id number] / [id number] Procedure: XR - Abdomen 1 View X-Ray CPT Code: 88001 FULL RESULT: EXAM: ABDOMEN RADIOGRAPHY EXAM DATE: 07/06/2018 11:02 AM. CLINICAL HISTORY: Follow-up small bowel obstruction. COMPARISON: ABDOMEN 2 VIEW 07/05/2018 9:42 PM. TECHNIQUE: 1 view. FINDINGS: Bowel Gas Pattern: Multiple dilated small bowel loops are again seen with interval decrease in previously seen large bowel gas. Persistence of a small amount of bowel gas in the rectal fossa suggests that the obstruction is possibly partial. The maximum caliber of small bowel loops now measures up to 3.6 cm, previously 3.4 cm. Other: None. IMPRESSION: Persistent small bowel obstruction, possibly partial. RADIA
[2018-07-06] MEDS ORDERED: KETOROLAC 30 MG/ML VIAL IVP PRN (14:04)
[2018-07-06] MEDS: ENALAPRILAT 1.25 MG/ML VIAL IVP SCH ×2 (16:40→22:28)
[2018-07-07] MEDS: LACTATED RINGERS 1,000 ML IV SCH (01:34)
[2018-07-07] MEDS: ENALAPRILAT 1.25 MG/ML VIAL IVP SCH ×3 (04:12→16:10)
[2018-07-07] MEDS: METOPROLOL 5 MG/5 ML VIAL IVP SCH ×2 (05:23→13:41)
[2018-07-07 05:53] LABS: HGB - HEMOGLOBIN 11.3 g/dL (12.0-16.0); MEAN CORPUSCULAR HGB CONC 32.7 g/dL (32.0-36.0); MEAN CORPUSCULAR VOLUME 88.6 fL (81.0-99.0); RED BLOOD COUNT 3.9 10^6/uL (4.20-5.40); WHITE BLOOD COUNT 10.3 x10^3/uL (4.8-10.8)
[2018-07-07 06:07] LABS: ALBUMIN 2.9 g/dL (3.2-5.5); BILIRUBIN,TOTAL 0.7 mg/dL (0.2-1.0); CALCIUM 8.4 mg/dL (8.5-10.3); CREATININE 0.8 mg/dL (0.4-1.0); TOTAL PROTEIN 5.7 g/dL (6.7-8.2)
[2018-07-07] MEDS: SODIUM CHLORIDE FLUSH 0.9% 10 ML SYRINGE IVP PRN (06:54)
[2018-07-07] MEDS: PANTOPRAZOLE 40 MG VIAL IVP SCH (06:54)
[2018-07-07] MEDS: SODIUM CHLORIDE FLUSH 0.9% 10 ML SYRINGE IVP SCH ×2 (07:51→16:10)
[2018-07-07] MEDS ORDERED: POTASSIUM CHLORIDE INJ 40 MEQ in SODIUM CHLORIDE 0.9% 480 ML IV ONE (08:01)
[2018-07-07] MEDS ORDERED: POTASSIUM CHLOR 10 MEQ/100 ML 10 MEQ/100 ML BAG IV ONE (08:06)
--- NOTE | 2018-07-07 09:07 | PROVIDER PROGRESS NOTE ---
Assessment/Plan - Problem List (1) Bowel obstruction Qualifiers: Intestinal obstruction type: obstruction due to adhesions Intestinal obstruction extent: partial Qualified Code(s): K56.51 - Intestinal adhesions [bands], with partial obstruction Assessment/Plan: Clinically improving. Rec: D/C NG tube, trial clear liquid diet, OOB more. - Current Meds Current Meds: Current Medications Generic Name Dose Route Start Last Admin Trade Name Freq PRN Reason Stop Dose Admin Enalaprilat 1.25 mg 07/06/18 16:00 07/07/18 04:12 Vasotec Inj IVP 1.25 mg 0400,1000,1600,2200 CRISTINA Administration Hydromorphone HCl 1 mg 07/05/18 04:07 07/06/18 00:13 Dilaudid Inj Carp IVP 1 mg Q2H PRN Administration Pain 8 to 10 Acetaminophen 100 mls @ 400 mls/hr 07/06/18 09:13 07/06/18 10:15 Ofirmev IV Infused Q6HR PRN Infusion PAIN Metoprolol Tartrate 5 mg 07/05/18 13:02 07/07/18 05:23 Lopressor Inj IVP 5 mg Q8H CRISTINA Administration Ondansetron HCl 4 mg 07/05/18 04:07 07/06/18 00:10 Zofran Inj IVP 4 mg Q6HR PRN Administration Nausea / Vomiting Pantoprazole Sodium 40 mg 07/05/18 07:00 07/07/18 06:54 Protonix IVP 40 mg QDAC CRISTINA Administration Prochlorperazine Edisylate 10 mg 07/05/18 04:07 07/05/18 17:21 Compazine Inj IVP 10 mg Q6HR PRN Administration Nausea / Vomiting Sodium Chloride 10 ml 07/05/18 04:07 07/07/18 06:54 Normal Saline Flush 0.9% IVP 10 ml PRN PRN Administration NEEDED PER PROVIDER ORDERS Sodium Chloride 10 ml 07/05/18 09:00 07/07/18 07:51 Normal Saline Flush 0.9% IVP Not Given 0100,0900,1700 CRISTINA - Lab Result Lab results reviewed: Yes Fish Bone Diagrams: 07/07/18 05:23 07/07/18 05:23 - Diagnostic Imaging Results Diagnostic Imaging Results: Read independently Diagnostic Imaging Results Comments: 2 view abd series this am: small bowel pattern returning to nl; Contrast now in colon, suggesting resolution of the SBO. - Additional Planning Condition/Complexity: Improved My Orders: My Active Orders 07/06/18 14:04 Ketorolac Inj (30Mg) [Toradol Inj (30Mg)] 30 mg IVP Q6HR PRN 07/07/18 07:00 Abdomen 2 View X-Ray [XR] Routine 07/07/18 09:03 NG DC [NG Discontinuation] [RC] ONCE 07/07/18 10:00 Dextrose 5%-0.45% NaCl [D5.45ns] 980 ml Potassium Chloride Inj 40 meq IV 75 mls/hr 07/07/18 Lunch Clear Liquid Diet [DIET] Plan Discussed with:: Patient, Family Time Spent: 15-30 minutes Subjective - Subjective Patient Reports: Feeling Better, Resting Comfortably, No Complaints (no pain meds x 12 hours; passing flatus and stool per rectum. No further N/V) Objective Vital Signs: Vital Signs - 24 hr 07/06/18 07/06/18 07/06/18 12:22 13:06 15:37 Temperature 37.0 C 36.8 C Heart Rate [ 88 93 Radial] Respiratory 16 16 Rate Blood Pressure 145/71 H Blood Pressure 137/70 H 138/71 H [Right Brachial artery] Blood Pressure [Right Radial artery] O2 Saturation 97 96 07/06/18 07/06/18 07/06/18 16:41 16:44 19:56 Temperature Heart Rate [ 90 Radial] Respiratory Rate Blood Pressure Blood Pressure 147/71 H 152/78 H [Right Brachial artery] Blood Pressure 150/77 H [Right Radial artery] O2 Saturation 07/06/18 07/06/18 07/06/18 19:59 20:17 22:13 Temperature 36.8 C Heart Rate [ 74 72 Radial] Respiratory 18 Rate Blood Pressure 150/77 H Blood Pressure 144/71 H 148/74 H [Right Brachial artery] Blood Pressure [Right Radial artery] O2 Saturation 98 07/07/18 07/07/18 07/07/18 00:54 04:00 05:23 Temperature 36.8 C 36.7 C Heart Rate [ 83 89 Radial] Respiratory 16 16 Rate Blood Pressure 139/61 H Blood Pressure 148/76 H 144/68 H [Right Brachial artery] Blood Pressure [Right Radial artery] O2 Saturation 98 97 07/07/18 08:00 Temperature 36.7 C Heart Rate [ 77 Radial] Respiratory 20 Rate Blood Pressure Blood Pressure 140/67 H [Right Brachial artery] Blood Pressure [Right Radial artery] O2 Saturation 97 Oxygen O2 Source Room air I&O (Last 24 Hrs): Intake and Output Totals x24h 07/05/18 07/06/18 07/07/18 23:59 23:59 23:59 Intake Total 2913.500 2212.5 1018.333 Output Total 50 1100 270 Balance 2863.500 1112.5 748.333 General: Alert, Oriented x3, Cooperative, No acute distress Neuro: Alert Abdomen: Soft, No tenderness, No hepatospenomegaly, No masses, Other (nondistended) Extremities: No edema, No tenderness/swelling - Results Results: Laboratory Results WBC 10.3 x10^3/uL (4.8-10.8) 07/07/18 05:23 RBC 3.90 10^6/uL (4.20-5.40) L 07/07/18 05:23 Hgb 11.3 g/dL (12.0-16.0) L 07/07/18 05:23 Hct 34.6 % (37.0-47.0) L 07/07/18 05:23 MCV 88.6 fL (81.0-99.0) 07/07/18 05:23 MCH 29.0 pg (27.0-31.0) 07/07/18 05:23 MCHC 32.7 g/dL (32.0-36.0) 07/07/18 05:23 RDW 13.0 % (12.0-15.0) 07/07/18 05:23 Plt Count 212 10^3/uL (130-450) 07/07/18 05:23 MPV 8.0 fL (7.9-10.8) 07/07/18 05:23 Neut # (Auto) 14.1 10^3/uL (1.5-6.6) H 07/05/18 01:55 Lymph # (Auto) 2.1 10^3/uL (1.5-3.5) 07/05/18 01:55 [place] # (Auto) 1.1 10^3/uL (0.0-1.0) H 07/05/18 01:55 Eos # (Auto) 0.0 10^3/uL (0.0-0.7) 07/05/18 01:55 Baso # (Auto) 0.0 10^3/uL (0.0-0.1) 07/05/18 01:55 Absolute Nucleated RBC 0.00 x10^3/uL 07/05/18 01:55 Nucleated RBC % 0.0 /100WBC 07/05/18 01:55 Sodium 141 mmol/L (135-145) 07/07/18 05:23 Potassium 3.1 mmol/L (3.5-5.0) L 07/07/18 05:23 Chloride 106 mmol/L (101-111) 07/07/18 05:23 Carbon Dioxide 30 mmol/L (21-32) 07/07/18 05:23 Anion Gap 5.0 (6-13) L 07/07/18 05:23 BUN 15 mg/dL (6-20) 07/07/18 05:23 Creatinine 0.8 mg/dL (0.4-1.0) 07/07/18 05:23 Estimated GFR (MDRD) 75 (>89) L 07/07/18 05:23 Glucose 88 mg/dL (70-100) 07/07/18 05:23 Calcium 8.4 mg/dL (8.5-10.3) L 07/07/18 05:23 Total Bilirubin 0.7 mg/dL (0.2-1.0) 07/07/18 05:23 AST 15 IU/L (10-42) 07/07/18 05:23 ALT 16 IU/L (10-60) 07/07/18 05:23 Alkaline Phosphatase 50 IU/L (42-121) 07/07/18 05:23 Total Protein 5.7 g/dL (6.7-8.2) L 07/07/18 05:23 Albumin 2.9 g/dL (3.2-5.5) L 07/07/18 05:23 Globulin 2.8 g/dL (2.1-4.2) 07/07/18 05:23 Albumin/Globulin Ratio 1.0 (1.0-2.2) 07/07/18 05:23 Amylase 74 U/L (28-100) 07/07/18 05:23 Lipase 45 U/L (22-51) 07/07/18 05:23 Urine Color DARK YELLOW 07/05/18 01:55 Urine Clarity CLEAR (CLEAR) 07/05/18 01:55 Urine pH 6.0 PH (5.0-7.5) 07/05/18 01:55 Ur Specific [place] >=1.030 (1.002-1.030) H 07/05/18 01:55 Urine Protein >=300 mg/dL (NEGATIVE) H 07/05/18 01:55 Urine Glucose (UA) NEGATIVE mg/dL (NEGATIVE) 07/05/18 01:55 Urine Ketones 40 mg/dL (NEGATIVE) H 07/05/18 01:55 Urine Occult Blood TRACE-INTA (NEGATIVE) 07/05/18 01:55 Urine Nitrite NEGATIVE (NEGATIVE) 07/05/18 01:55 Urine Bilirubin NEGATIVE (NEGATIVE) 07/05/18 01:55 Urine Urobilinogen 0.2 (NORMAL) E.U./dL (NORMAL) 07/05/18 01:55 Ur Leukocyte Esterase NEGATIVE (NEGATIVE) 07/05/18 01:55 Urine RBC 0-5 /HPF (0-5) 07/05/18 01:55 Urine WBC 0-3 /HPF (0-5) 07/05/18 01:55 Ur Squamous Epith Cells MOD Squamous (<= Few) H 07/05/18 01:55 Urine Bacteria Few /HPF (None Seen) 07/05/18 01:55 Urine Casts 6-10 Granular Casts /LPF 07/05/18 01:55 Ur Microscopic Review INDICATED 07/05/18 01:55 Urine Culture Comments NOT INDICATED 07/05/18 01:55 Sepsis Event Note (H) - Evaluation Current Stage of Sepsis: Ruled out ABX Reporting Has patient been on IV antibiotics over the past 48 hours?: No
--- NOTE | 2018-07-07 09:24 | XRAY Report ---
Reason: f/u sbo Procedure Date: 07/07/2018 Accession Number: [id number] / [id number] Procedure: XR - Abdomen 2 View X-Ray CPT Code: 97574 FULL RESULT: EXAM: ABDOMEN RADIOGRAPHY EXAM DATE: 07/07/2018 08:59 AM. CLINICAL HISTORY: Follow-up small bowel obstruction. COMPARISON: ABDOMEN 1 VIEW 07/06/2018 10:42 AM. TECHNIQUE: 2 view. FINDINGS: Lung Bases: Unremarkable. Bowel Gas Pattern: Gastrografin is noted throughout the colon and upper rectum. Mildly dilated small bowel loops within central abdomen with 3.4 cm projected diameter with air-fluid levels on upright film. No pneumatosis coli or intestinalis evident. Free Air: None. Other: No portal venous gas demonstrated. Multiple monitoring leads overlie patient. Enteric tube may still be present extending into the upper stomach, however partially obscured by overlying EKG lead. IMPRESSION: 1. Successful Gastrografin challenge. Contrast is present throughout the colon. 2. Persistent mildly dilated small bowel loops with air-fluid levels in the central abdomen. Findings may be from partial small bowel obstruction or ileus. RADIA
[2018-07-07] MEDS ORDERED: POTASSIUM CHLORIDE INJ 40 MEQ in DEXTROSE 5%-0.45% NACL 980 ML IV SCH (10:00)
[2018-07-07] MEDS: POTASSIUM CHLORIDE INJ 40 MEQ in DEXTROSE 5%-0.45% NACL 980 ML IV SCH (10:20)
--- NOTE | 2018-07-07 12:34 | PROVIDER PROGRESS NOTE ---
Subjective - Prog Note Date Prog Note Date: 07/07/18 - Subjective Pt reports feeling: Improved Subjective: pt report she feel better, abdominal is better controlled, No N/V. KUB indicate pt may have partial bowel obstruction. diet is updated to clear diet, and NG is removal. pt denies other complaints. Current Medications - Current Medications Current Medications: Active Medications Enalaprilat (Vasotec Inj) 1.25 mg IVP 0400,1000,1600,2200 [facility] Last Admin: 07/07/18 10:24 Dose: 1.25 mg Hydromorphone HCl (Dilaudid Inj Carp) 1 mg IVP Q2H PRN PRN Reason: Pain 8 to 10 Last Admin: 07/06/18 00:13 Dose: 1 mg Acetaminophen (Ofirmev) 100 mls @ 400 mls/hr IV Q6HR PRN PRN Reason: PAIN Last Infusion: 07/06/18 10:15 Dose: Infused Potassium Chloride 40 meq/ (Dextrose/Sodium Chloride) 1,000 mls @ 75 mls/hr IV .[id number] [facility] Last Admin: 07/07/18 10:20 Dose: 75 mls/hr Ketorolac Tromethamine (Toradol Inj (30mg)) 30 mg IVP Q6HR PRN PRN Reason: PAIN Stop: 07/11/18 14:03 Metoprolol Tartrate (Lopressor Inj) 5 mg IVP Q8H [facility] Last Admin: 07/07/18 05:23 Dose: 5 mg Ondansetron HCl (Zofran Inj) 4 mg IVP Q6HR PRN PRN Reason: Nausea / Vomiting Last Admin: 07/06/18 00:10 Dose: 4 mg Pantoprazole Sodium (Protonix) 40 mg IVP QDAC [facility] Last Admin: 07/07/18 06:54 Dose: 40 mg Prochlorperazine Edisylate (Compazine Inj) 10 mg IVP Q6HR PRN PRN Reason: Nausea / Vomiting Last Admin: 07/05/18 17:21 Dose: 10 mg Sodium Chloride (Normal Saline Flush 0.9%) 10 ml IVP PRN PRN PRN Reason: NEEDED PER PROVIDER ORDERS Last Admin: 07/07/18 06:54 Dose: 10 ml Sodium Chloride (Normal Saline Flush 0.9%) 10 ml IVP 0100,0900,1700 CRISTINA Last Admin: 07/07/18 07:51 Dose: Not Given Zolpidem Tartrate (Ambien) 5 mg PO QPM PRN PRN Reason: Insomnia Acetaminophen [Tylenol] 650 mg PO Q6H PRN 12/22/12 Ascorbic Acid [Vitamin C] 500 mg PO DAILY 12/22/12 Calcium Carbonate [Tums] 1,000 mg PO Q6HR PRN 12/22/12 Fish Oil/Dha/Epa [Fish Oil 1,200 mg Fish Oil] 1 each PO DAILY 12/22/12 Ibuprofen [Motrin] 100 mg PO Q6H PRN 12/22/12 Multivitamin [Multivitamins] 1 each PO DAILY 12/22/12 Propranolol [Inderal] 20 mg PO BID 12/22/12 Vitamin B Complex 500 each PO DAILY 12/28/13 Cholecalciferol (Vitamin D3) [Vitamin D3] 1,000 unit PO DAILY 06/28/14 Estradiol [Vagifem] 1 tab PV Q7D 02/11/17 Objective - Vital Signs/Intake & Output Reviewed Vital Signs: Yes Vital Signs: Vital Signs x48h Temp Pulse Resp BP BP Pulse Ox 07/07/18 08:00 36.7 C 77 20 140/67 H 97 07/07/18 05:23 139/61 H Intake & Output: Intake & Output 07/04/18 07/05/18 07/06/18 07/07/18 23:59 23:59 23:59 23:59 Intake Total 2913.500 2212.5 1953.333 Output Total 50 1100 270 Balance 2863.500 1112.5 1683.333 - Objective General Appearance: positive: No acute distress, Alert. negative: Lethargic Eyes Bilateral: positive: Normal inspection, PERRL, No lid inflammation, Conjunctivae nml ENT: positive: ENT inspection nml, Pharynx nml, No signs of dehydration. negative: Purulent nasal drainage, Pharyngeal erythema, Oral lesions Neck: positive: Nml inspection, Thyroid nml, No JVD, Trachea midline. negative: Thyromegaly, Lymphadenopathy (R), Lymphadenopathy (L), Stiff neck, Swelling/bruising, Tracheal deviation Respiratory: positive: Chest non-tender, No respiratory distress, Breath sounds nml. negative: Wheezes, Rales, Rhonchi Cardiovascular: positive: Regular rate & rhythm, No murmur, No gallop. negative: Irregularly irregular, Extrasystoles, Tachycardia, Bradycardia, JVD present, Systolic murmur, Diastolic murmur Peripheral Pulses: 2+ Radial (R), 2+ Radial (L), 2+ Dorsalis pedis (R), 2+ Dorsalis pedis (L) Abdomen: positive: Non-tender, No organomegaly, Nml bowel sounds, No distention. negative: Tenderness, Guarding, Rebound Back: positive: Nml inspection. negative: CVA tenderness (R), CVA tenderness (L) Skin: positive: Color nml, No rash, Warm, Dry. negative: Cyanosis, Diaphoresis, Pallor Extremities: positive: Non-tender, Full ROM, Nml appearance. negative: Calf tenderness, Joint swelling, Pedro's sign/cords Neurologic/Psychiatric: positive: Oriented x3, Motor nml, Sensation nml, Mood/ affect nml. negative: Weakness, Sensory loss, Facial droop, Slurred/abnml speech, Depressed mood/affect - Lab Results Fish Bones: 07/07/18 05:23 07/07/18 05:23 Other Labs: Lab Results x24hrs 07/07/18 07/07/18 Range/Units 05:23 05:23 WBC 10.3 (4.8-10.8) x10^3/uL RBC 3.90 L (4.20-5.40) 10^6/uL Hgb 11.3 L (12.0-16.0) g/dL Hct 34.6 L (37.0-47.0) % MCV 88.6 (81.0-99.0) fL MCH 29.0 (27.0-31.0) pg MCHC 32.7 (32.0-36.0) g/dL RDW 13.0 (12.0-15.0) % Plt Count 212 (130-450) 10^3/uL MPV 8.0 (7.9-10.8) fL Sodium 141 (135-145) mmol/L Potassium 3.1 L (3.5-5.0) mmol/L Chloride 106 (101-111) mmol/L Carbon Dioxide 30 (21-32) mmol/L Anion Gap 5.0 L (6-13) BUN 15 (6-20) mg/dL Creatinine 0.8 (0.4-1.0) mg/dL Estimated GFR (MDRD) 75 L (>89) Glucose 88 (70-100) mg/dL Calcium 8.4 L (8.5-10.3) mg/dL Total Bilirubin 0.7 (0.2-1.0) mg/dL AST 15 (10-42) IU/L ALT 16 (10-60) IU/L Alkaline Phosphatase 50 (42-121) IU/L Total Protein 5.7 L (6.7-8.2) g/dL Albumin 2.9 L (3.2-5.5) g/dL Globulin 2.8 (2.1-4.2) g/dL Albumin/Globulin Ratio 1.0 (1.0-2.2) Amylase 74 (28-100) U/L Lipase 45 (22-51) U/L ABX Reporting Has patient been on IV antibiotics over the past 48 hours?: No Sepsis Event Note (H) - Evaluation Current Stage of Sepsis: Ruled out Assessment/Plan - Problem List (1) Bowel obstruction Impression: (1) Bowel obstruction partial obstruction encourage pt continue walk safely update to clear liquid diet continue pain control KUB tomorrow if continue improved, may d/c tomorrow (2) Nausea resolved (3) HTN (hypertension) stable (4) Abdominal pain resolved, PRN pain meds (5) hypokalemia K is 3.1 replace of potassium, will check Qualifiers: Intestinal obstruction type: obstruction due to adhesions Intestinal obstruction extent: partial Qualified Code(s): K56.51 - Intestinal adhesions [bands], with partial obstruction
[2018-07-07] MEDS ORDERED: ACETAMINOPHEN 325 MG TABLET PO PRN (17:40)
[2018-07-07] MEDS ORDERED: cloNIDine 0.1 MG TABLET PO PRN (17:41)
[2018-07-07] MEDS: PROPRANOLOL 10 MG TABLET PO SCH (21:06)
[2018-07-08] MEDS: SODIUM CHLORIDE FLUSH 0.9% 10 ML SYRINGE IVP SCH ×2 (00:41→08:39)
[2018-07-08] MEDS: POTASSIUM CHLORIDE INJ 40 MEQ in DEXTROSE 5%-0.45% NACL 980 ML IV SCH (01:47)
[2018-07-08 05:58] LABS: HGB - HEMOGLOBIN 11.1 g/dL (12.0-16.0); MEAN CORPUSCULAR HEMOGLOBIN 28.7 pg (27.0-31.0); MEAN CORPUSCULAR HGB CONC 32.4 g/dL (32.0-36.0); MEAN CORPUSCULAR VOLUME 88.6 fL (81.0-99.0); MEAN PLATELET VOLUME 7.9 fL (7.9-10.8); RED BLOOD COUNT 3.87 10^6/uL (4.20-5.40); RED CELL DISTRIBUTION WIDTH 13.4 % (12.0-15.0); WHITE BLOOD COUNT 8.7 x10^3/uL (4.8-10.8)
[2018-07-08 06:08] LABS: ALBUMIN 2.8 g/dL (3.2-5.5); BILIRUBIN,TOTAL 0.5 mg/dL (0.2-1.0); CALCIUM 8.3 mg/dL (8.5-10.3); CREATININE 0.8 mg/dL (0.4-1.0); TOTAL PROTEIN 5.6 g/dL (6.7-8.2)
[2018-07-08] MEDS ORDERED: PANTOPRAZOLE 40 MG TABLET PO SCH (07:00)
[2018-07-08] MEDS ORDERED: POTASSIUM CHLORIDE 20 MEQ TABLET PO SCH (07:53)
[2018-07-08 08:07] VITALS: BP 146/77
--- NOTE | 2018-07-08 08:07 | PROVIDER PROGRESS NOTE ---
Assessment/Plan - Problem List (1) Bowel obstruction Qualifiers: Intestinal obstruction type: obstruction due to adhesions Intestinal obstruction extent: partial Qualified Code(s): K56.51 - Intestinal adhesions [bands], with partial obstruction Assessment/Plan: continues to resolve; rec advance diet to full liquid, then low residue; possibly home this afternoon if continues to do well. - Current Meds Current Meds: Current Medications Generic Name Dose Route Start Last Admin Trade Name Freq PRN Reason Stop Dose Admin Ondansetron HCl 4 mg 07/05/18 04:07 07/06/18 00:10 Zofran Inj IVP 4 mg Q6HR PRN Administration Nausea / Vomiting Pantoprazole Sodium 40 mg 07/08/18 07:00 07/08/18 06:07 Protonix PO 40 mg QDAC CRISTINA Administration Prochlorperazine Edisylate 10 mg 07/05/18 04:07 07/05/18 17:21 Compazine Inj IVP 10 mg Q6HR PRN Administration Nausea / Vomiting Propranolol HCl 20 mg 07/07/18 21:00 07/07/18 21:06 Inderal PO 20 mg BID CRISTINA Administration Sodium Chloride 10 ml 07/05/18 04:07 07/07/18 06:54 Normal Saline Flush 0.9% IVP 10 ml PRN PRN Administration NEEDED PER PROVIDER ORDERS Sodium Chloride 10 ml 07/05/18 09:00 07/08/18 00:41 Normal Saline Flush 0.9% IVP 10 ml 0100,0900,1700 CRISTINA Administration - Lab Result Fish Bone Diagrams: 07/08/18 05:33 07/08/18 05:33 - Additional Planning Condition/Complexity: Improved My Orders: My Active Orders 07/08/18 Breakfast Full Liquid Diet [DIET] Plan Discussed with:: Patient Time Spent: 15-30 minutes Subjective - Subjective Patient Reports: Feeling Better, Resting Comfortably, No Complaints, Other (no further abd pain, N/V; tolerating clear liquids well; multiple loose stools overnight) Objective Vital Signs: Vital Signs - 24 hr 07/07/18 07/07/18 07/07/18 13:41 15:55 16:50 Temperature 36.8 C Heart Rate [ 78 72 Radial] Respiratory 20 Rate Blood Pressure 141/79 H Blood Pressure 134/61 H 140/69 H [Right Brachial artery] O2 Saturation 98 07/07/18 07/08/18 21:07 00:40 Temperature 36.6 C Heart Rate [ 77 77 Radial] Respiratory 18 Rate Blood Pressure Blood Pressure 124/62 138/76 H [Right Brachial artery] O2 Saturation 100 Oxygen O2 Source Room air I&O (Last 24 Hrs): Intake and Output Totals x24h 07/06/18 07/07/18 07/08/18 23:59 23:59 23:59 Intake Total 2212.5 3442.083 91.25 Output Total 1100 270 Balance 1112.5 3172.083 91.25 General: Alert, Oriented x3, Cooperative Neuro: Alert Abdomen: Normal bowel sounds, Soft, No tenderness, No hepatospenomegaly - Results Results: Laboratory Results WBC 8.7 x10^3/uL (4.8-10.8) 07/08/18 05:33 RBC 3.87 10^6/uL (4.20-5.40) L 07/08/18 05:33 Hgb 11.1 g/dL (12.0-16.0) L 07/08/18 05:33 Hct 34.3 % (37.0-47.0) L 07/08/18 05:33 MCV 88.6 fL (81.0-99.0) 07/08/18 05:33 MCH 28.7 pg (27.0-31.0) 07/08/18 05:33 MCHC 32.4 g/dL (32.0-36.0) 07/08/18 05:33 RDW 13.4 % (12.0-15.0) 07/08/18 05:33 Plt Count 207 10^3/uL (130-450) 07/08/18 05:33 MPV 7.9 fL (7.9-10.8) 07/08/18 05:33 Neut # (Auto) 14.1 10^3/uL (1.5-6.6) H 07/05/18 01:55 Lymph # (Auto) 2.1 10^3/uL (1.5-3.5) 07/05/18 01:55 [place] # (Auto) 1.1 10^3/uL (0.0-1.0) H 07/05/18 01:55 Eos # (Auto) 0.0 10^3/uL (0.0-0.7) 07/05/18 01:55 Baso # (Auto) 0.0 10^3/uL (0.0-0.1) 07/05/18 01:55 Absolute Nucleated RBC 0.00 x10^3/uL 07/05/18 01:55 Nucleated RBC % 0.0 /100WBC 07/05/18 01:55 Sodium 137 mmol/L (135-145) 07/08/18 05:33 Potassium 3.2 mmol/L (3.5-5.0) L 07/08/18 05:33 Chloride 105 mmol/L (101-111) 07/08/18 05:33 Carbon Dioxide 29 mmol/L (21-32) 07/08/18 05:33 Anion Gap 3.0 (6-13) L 07/08/18 05:33 BUN 10 mg/dL (6-20) 07/08/18 05:33 Creatinine 0.8 mg/dL (0.4-1.0) 07/08/18 05:33 Estimated GFR (MDRD) 75 (>89) L 07/08/18 05:33 Glucose 109 mg/dL (70-100) H 07/08/18 05:33 Calcium 8.3 mg/dL (8.5-10.3) L 07/08/18 05:33 Total Bilirubin 0.5 mg/dL (0.2-1.0) 07/08/18 05:33 AST 17 IU/L (10-42) 07/08/18 05:33 ALT 17 IU/L (10-60) 07/08/18 05:33 Alkaline Phosphatase 52 IU/L (42-121) 07/08/18 05:33 Total Protein 5.6 g/dL (6.7-8.2) L 07/08/18 05:33 Albumin 2.8 g/dL (3.2-5.5) L 07/08/18 05:33 Globulin 2.8 g/dL (2.1-4.2) 07/08/18 05:33 Albumin/Globulin Ratio 1.0 (1.0-2.2) 07/08/18 05:33 Amylase 74 U/L (28-100) 07/07/18 05:23 Lipase 45 U/L (22-51) 07/07/18 05:23 Urine Color DARK YELLOW 07/05/18 01:55 Urine Clarity CLEAR (CLEAR) 07/05/18 01:55 Urine pH 6.0 PH (5.0-7.5) 07/05/18 01:55 Ur Specific [place] >=1.030 (1.002-1.030) H 07/05/18 01:55 Urine Protein >=300 mg/dL (NEGATIVE) H 07/05/18 01:55 Urine Glucose (UA) NEGATIVE mg/dL (NEGATIVE) 07/05/18 01:55 Urine Ketones 40 mg/dL (NEGATIVE) H 07/05/18 01:55 Urine Occult Blood TRACE-INTA (NEGATIVE) 07/05/18 01:55 Urine Nitrite NEGATIVE (NEGATIVE) 07/05/18 01:55 Urine Bilirubin NEGATIVE (NEGATIVE) 07/05/18 01:55 Urine Urobilinogen 0.2 (NORMAL) E.U./dL (NORMAL) 07/05/18 01:55 Ur Leukocyte Esterase NEGATIVE (NEGATIVE) 07/05/18 01:55 Urine RBC 0-5 /HPF (0-5) 07/05/18 01:55 Urine WBC 0-3 /HPF (0-5) 07/05/18 01:55 Ur Squamous Epith Cells MOD Squamous (<= Few) H 07/05/18 01:55 Urine Bacteria Few /HPF (None Seen) 07/05/18 01:55 Urine Casts 6-10 Granular Casts /LPF 07/05/18 01:55 Ur Microscopic Review INDICATED 07/05/18 01:55 Urine Culture Comments NOT INDICATED 07/05/18 01:55 Sepsis Event Note (H) - Evaluation Current Stage of Sepsis: Ruled out ABX Reporting Has patient been on IV antibiotics over the past 48 hours?: No
[2018-07-08] MEDS: PROPRANOLOL 10 MG TABLET PO SCH (08:39)
--- NOTE | 2018-07-08 12:30 | Discharge Plan ---
Discharge Plan Disposition: 01 Home, Self Care Condition: Poor Diet: Regular Activity Restrictions: Activity as Tolerated Shower Restrictions: No (fall precaution) Instruction Topics: Obstruction Sm Bowel Additional Instructions or Follow Up instructions: You may followup your PCP in two weeks. You were admitted for bowel obstruction which was resolved in the hospital without surgical intervention. You had bowel movement, you tolerated the diet, no abdominal pain or nausea or vomiting. Should your symptoms return or worsen, you may present ER or call 911 for help. No Smoking: If you smoke, Please STOP! Call for help. Follow-up with: Norma Perry ARNP [Primary Care Provider] -
--- NOTE | 2018-07-08 12:36 | DISCHARGE SUMMARY ---
"Discharge Summary Discharge Date: 07/08/18 Discharging Provider: NG Primary Care Provider: Nroma Watts Condition at Discharge: Good Discharge Disposition: 01 Home, Self Care Discharge Facility Name: home - DIAGNOSES Admission Diagnoses: (1) Bowel obstruction (2) HTN (hypertension) (3) Leukocytosis Discharge Diagnoses with Status of Each Condition: (1) Bowel obstruction resolved. pt report she did not have abdominal pain, tolerate diet without N/V. pt report she had bowel movement today morning. Dr. Ghulam Steel d/c pt as well. (2) Nausea resolved (3) HTN (hypertension) stable, followup PCP (4) Abdominal pain resolved (5) hypokalemia replaced - HPI History of Present Illness: refer from Dr. Heaton's HPI on 07/05/18 as the following: Patient is a 53-year-old female with a past medical history of hypertension, left breast cancer diagnosed in 2016, total hysterectomy, who developed mid abdominal pain on Friday evening, over the evening before she presented to the emergency room. She took a Tylenol thinking that it would pass however when she woke up the next morning, the day of her arrival at the emergency room, the abdominal pain was worse and she began to have nausea and vomiting. She estimates that she had about 15-20 episodes of emesis throughout the day primarily consisting of acidic liquid contents. The abdominal pain has been sharp, midepigastric, and crampy in nature. It is exacerbated by eating anything or even drinking anything and she has been unable to tolerate even p.o. liquids. She had a similar episode approximately 1 year ago in July 2007 where she went to the emergency room and describes her symptoms as similar to that however at that time it was presumed to be a viral gastroenteritis and she was discharged home without further workup. On this occ asion however, the emergency room performed a CT scan of the abdomen which did show evidence of small bowel obstruction.Due to the patient's inability to tolerate p.o.'s, small bowel obstruction, with an elevated white blood cell count of 17, ED physician contacted the hospitalist service to admit the patient for further workup and care. - CONSULTS | PROCEDURES Consultations: Dr. Ghulam Steel Procedures: no, bowel obstruction was resolved by its self - HOSPITAL COURSE Hospital Course: pt was admitted for abdominal, N/V. pt was found to have bowel obstruction. Dr. Ghulam Steel was consulted. Pt was advised to have more walk, pt tolerated for that. Then Bowel obstruction was resolved by its own without surgery intervention. pt report she did not have abdominal pain, tolerate diet without N/V. pt report she had bowel movement today morning. Dr. Ghulam Steel d/c pt - ALLERGIES Allergies/Adverse Reactions: Allergies Allergy/AdvReac Type Severity Reaction Status Date / Time Penicillins Allergy Rash Verified 07/05/18 01:48 - MEDICATIONS Home Medications: Ambulatory Orders Medication Instructions Recorded Confirmed Acetaminophen [Tylenol] 650 mg PO Q6H PRN 12/22/12 07/05/18 Ascorbic Acid [Vitamin C] 500 mg PO DAILY 12/22/12 07/05/18 Calcium Carbonate [Tums] 1,000 mg PO Q6HR PRN 12/22/12 07/05/18 Fish Oil/Dha/Epa [Fish Oil 1,200 1 each PO DAILY 12/22/12 07/05/18 mg Fish Oil] Ibuprofen [Motrin] 100 mg PO Q6H PRN 12/22/12 07/05/18 Multivitamin [Multivitamins] 1 each PO DAILY 12/22/12 07/05/18 Propranolol [Inderal] 20 mg PO BID 12/22/12 07/05/18 Vitamin B Complex 500 each PO DAILY 12/28/13 07/05/18 Cholecalciferol (Vitamin D3) 1,000 unit PO DAILY 06/28/14 07/05/18 [Vitamin D3] Estradiol [Vagifem] 1 tab PV Q7D 02/11/17 07/05/18 - PHYSICAL EXAM AT DISCHARGE General Appearance: positive: No acute distress, Alert. negative: Lethargic Eyes Bilateral: positive: Normal inspection, PERRL, No lid inflammation, Conjunctivae nml ENT: positive: ENT inspection nml, Pharynx nml, No signs of dehydration. negative: Purulent nasal drainage, Pharyngeal erythema, Oral lesions Neck: positive: Nml inspection, Thyroid nml, No JVD, Trachea midline. negative: Thyromegaly, Lymphadenopathy (R), Lymphadenopathy (L), Stiff neck, Swelling/bruising, Tracheal deviation Respiratory: positive: Chest non-tender, No respiratory distress, Breath sounds nml. negative: Wheezes, Rales, Rhonchi Cardiovascular: positive: Regular rate & rhythm, No murmur, No gallop. negative: Irregularly irregular, Extrasystoles, Tachycardia, Bradycardia, JVD present, Systolic murmur, Diastolic murmur Peripheral Pulses: positive: 2+ Abdomen: positive: Non-tender, No organomegaly, Nml bowel sounds, No distention. negative: Tenderness, Guarding, Rebound Back: positive: Nml inspection. negative: CVA tenderness (R), CVA tenderness (L) Skin: positive: Color nml, No rash, Warm, Dry. negative: Cyanosis, Diaphoresis, Pallor Extremities: positive: Non-tender, Full ROM, Nml appearance. negative: Pedal edema, Calf tenderness, Joint swelling, Pedro's sign/cords Neurologic/Psychiatric: positive: Oriented x3, Motor nml, Sensation nml, Mood/affect nml. negative: Weakness, Sensory loss, Facial droop, Slurred/abnml speech, Depressed mood/affect - LABS Result Diagrams: 07/08/18 05:33 07/08/18 05:33 - SEPSIS Current Stage of Sepsis: Ruled out - FOLLOW UP Follow Up: You may followup your PCP in two weeks. You were admitted for bowel obstruction which was resolved in the hospital without surgical intervention. You had bowel movement, you tolerated the diet, no abdominal pain or nausea or vomiting. Should your symptoms return or worsen, you may present ER or call 911 for help. - TIME SPENT Time Spent in Discharge (Minutes): 45"
== END 2018-07-08 12:43 | disposition home or self-care (01) | DRG 390 ==
LOC: ED 01:40 → MS2 04:07
PROVIDERS: ADMIT Family Medicine Sports Medicine; ATTEND Nurse Practitioner
DX: K56.50 Intestinal adhesions [bands], unspecified as to partial versus complete obstruction (principal); I10 Essential (primary) hypertension; E87.6 Hypokalemia; D72.829 Elevated white blood cell count, unspecified; Z85.3 Personal history of malignant neoplasm of breast; Z90.710 Acquired absence of both cervix and uterus; Z92.3 Personal history of irradiation; Z82.49 Family history of ischemic heart disease and other diseases of the circulatory system; Z88.0 Allergy status to penicillin
CPT/HCPCS: 36415; 71045; 74018; 74019; 74177; 80053; 81001; 81003; 82150; 83690; 85025; 85027; 87086; 96374; 96375; 99284

== ENCOUNTER 2018-07-16 08:54 | Outpatient (CLI) | payer BC ==
[2018-07-16 12:05] LABS: CALCIUM 9.7 mg/dL (8.5-10.3); CREATININE 0.8 mg/dL (0.4-1.0)
[2018-07-16 19:22] LABS: THYROID STIMULATING HORMONE 0.21 uIU/mL (0.34-5.60)
[2018-07-16 19:56] LABS: FREE T4 (FREE THYROXINE) 1.37 ng/dL (0.58-1.64)
[2018-07-17 07:59] LABS: HB2 TOTAL 13.1 g/dL; HEMOGLOBIN A1C 0.55 g/dL
== END 2018-07-16 08:55 | disposition home or self-care (01) ==
LOC: LAB.F 08:54
PROVIDERS: ATTEND Nurse Practitioner Family
DX: N28.9 Disorder of kidney and ureter, unspecified (principal); R73.01 Impaired fasting glucose; R94.6 Abnormal results of thyroid function studies
CPT/HCPCS: 36415; 80048; 83036; 84439; 84443

== ENCOUNTER 2018-07-22 08:01 | Outpatient (CLI) | payer BC ==
[2018-07-22 10:02] LABS: BASOPHILS % (AUTO) 0.5 %; EOSINOPHILS # (AUTO) 0.1 10^3/uL (0.0-0.7); EOSINOPHILS % (AUTO) 1.9 %; HGB - HEMOGLOBIN 12.3 g/dL (12.0-16.0); LYMPHOCYTES # (AUTO) 2.3 10^3/uL (1.5-3.5); LYMPHOCYTES % (AUTO) 37.9 %; MEAN CORPUSCULAR HGB CONC 33.4 g/dL (32.0-36.0); MEAN CORPUSCULAR VOLUME 86.9 fL (81.0-99.0); MEAN PLATELET VOLUME 8.3 fL (7.9-10.8); MONOCYTES # (AUTO) 0.5 10^3/uL (0.0-1.0); MONOCYTES % (AUTO) 8.1 %; NEUTROPHILS # (AUTO) 3.2 10^3/uL (1.5-6.6); NEUTROPHILS % (AUTO) 51.6 %; PLT - PLATELET COUNT 305 10^3/uL (130-450); RED BLOOD COUNT 4.25 10^6/uL (4.20-5.40); RED CELL DISTRIBUTION WIDTH 13.4 % (12.0-15.0); WHITE BLOOD COUNT 6.2 x10^3/uL (4.8-10.8)
[2018-07-22 10:16] LABS: ALBUMIN 3.5 g/dL (3.2-5.5); ALBUMIN/GLOBULIN RATIO 1.1 (1.0-2.2); BILIRUBIN,TOTAL 0.6 mg/dL (0.2-1.0); CALCIUM 9.1 mg/dL (8.5-10.3); CREATININE 0.8 mg/dL (0.4-1.0); TOTAL PROTEIN 6.6 g/dL (6.7-8.2)
== END 2018-07-22 08:02 | disposition home or self-care (01) ==
LOC: LAB.F 08:01
PROVIDERS: ATTEND Nurse Practitioner Family
DX: K56.609 Unspecified intestinal obstruction, unspecified as to partial versus complete obstruction (principal)
CPT/HCPCS: 36415; 80053; 85025

== ENCOUNTER 2019-02-11 06:05 | Day surgery (SDC) | payer BC ==
[2019-02-11] MEDS ORDERED: LACTATED RINGERS 1,000 ML IV ONE (06:50)
[2019-02-11] MEDS ORDERED: fentaNYL 250 MCG/5 ML VIAL IVP ONE (07:36)
[2019-02-11] MEDS ORDERED: MIDAZOLAM 2 MG/2 ML VIAL IVP ONE (07:36)
[2019-02-11 08:35] VITALS: BP 109/70
== END 2019-02-11 06:06 | disposition home or self-care (01) ==
LOC: SDS 06:05
PROVIDERS: ATTEND Surgery
PROC: 0DJD8ZZ Inspection of Lower Intestinal Tract, Via Natural or Artificial Opening Endoscopic (ICD-10-PCS; principal; 2019-02-11 07:30)
DX: Z12.11 Encounter for screening for malignant neoplasm of colon (principal); K64.8 Other hemorrhoids; I10 Essential (primary) hypertension
CPT/HCPCS: 45378; J3010; J7120

== ENCOUNTER 2019-02-17 16:40 | Outpatient (CLI) | payer BC ==
--- NOTE | 2019-02-18 09:21 | Mammography Report ---
Reason: L BREAST CA,SCREENING MAMMO Procedure Date: 02/17/2019 Accession Number: [id number] / [id number] Procedure: BRITTNEY - Screening Mammo w/Duran CPT Code: FULL RESULT: EXAM: Screening Mammo w/Duran DATE: 02/17/2019 5:25 PM CLINICAL HISTORY: Screening encounter. History of late childbearing and personal history of breast cancer status post left breast lumpectomy in 2011. TECHNIQUE: (B) - Bilateral CC and MLO views were obtained. COMPARISON: 02/16/2018 through 01/18/2015. PARENCHYMAL PATTERN: (A) - The breast(s) demonstrate(s) scattered fibroglandular densities. FINDINGS: Post treatment changes in the left breast are stable. There are no suspicious masses, calcifications, or areas of distortion. IMPRESSION: Benign findings. BI-RADS category 2. RECOMMENDATION: (ANNUAL) - Recommend routine annual screening mammography. BI-RADS CATEGORY: (2) - Benign Findings. STANDARD QUALIFYING STATEMENTS: 1. This examination was not reviewed with the aid of Computer-Aided Detection (CAD). 2. A negative or benign imaging report should not preclude biopsy if clinically suspicious findings are present. 3. Dense breasts may obscure an underlying neoplasm. 4. This examination was reviewed with the aid of 3D breast imaging (tomosynthesis).
== END 2019-02-17 16:41 | disposition home or self-care (01) ==
LOC: DI 16:40
PROVIDERS: ATTEND Internal Medicine Hematology & Oncology
DX: Z12.31 Encounter for screening mammogram for malignant neoplasm of breast (principal); Z08 Encounter for follow-up examination after completed treatment for malignant neoplasm; Z85.3 Personal history of malignant neoplasm of breast
CPT/HCPCS: 77063; 77067

== ENCOUNTER 2020-02-21 15:24 | Outpatient (CLI) | payer BC ==
--- NOTE | 2020-02-22 09:33 | Mammography Report ---
BILATERAL DIGITAL SCREENING MAMMOGRAM 3D/2D: 02/21/2020 CLINICAL: Routine screening. Personal history of left breast cancer. Comparison is made to exams dated: 02/16/2018 mammogram, 02/17/2019 mammogram, 02/03/2017 mammogram, an d 01/22/2016 mammogram - [facility]. There are scattered fibroglandular elements in both breasts. There are benign post operative findings in the left breast. No significant masses, calcifications, or other findings are seen in either breast. There has been no significant interval change. IMPRESSION: There is no mammographic evidence of malignancy. A 1 year screening mammogram is recommended. This exam was interpreted at Station ID: [id number]. NOTE: For mammograms, a report in lay terms will be sent to the patient. Approximately 15% of breast malignancies will not be visualized mammographically. In the management of a palpable breast mass, a negative mammogram must not discourage biopsy of a clinically suspicious lesion. Electronically Signed By: Prabhjot gottlieb/jayson:02/21/2020 17:03:09 ACR BI-RADS Category 2: Benign Finding(s) 3342F PARENCHYMAL PATTERN: (A) - The breast(s) demonstrate(s) scattered fibroglandular densities. BI-RADS CATEGORY: (2) - 2 RECOMMENDATION: (ANNUAL) - Recommend routine annual screening mammography. [id number] 1 year screening LATERALITY: (B)
== END 2020-02-21 15:25 | disposition home or self-care (01) ==
LOC: DI 15:24
PROVIDERS: ATTEND Internal Medicine Hematology & Oncology
DX: Z12.31 Encounter for screening mammogram for malignant neoplasm of breast (principal); Z85.3 Personal history of malignant neoplasm of breast
CPT/HCPCS: 77063; 77067

== ENCOUNTER 2020-03-13 12:27 | Outpatient (CLI) | payer BC ==
--- NOTE | 2020-03-13 13:41 | DEXA Report ---
PROCEDURE: Dexa Spine and/or Hip INDICATIONS: OSTEOPENIA TECHNIQUE: Dual energy x-ray absorptiometry (DXA) was performed on a [employer] System. Regions measur ed are the AP Spine, femoral neck, and if needed forearm. COMPARISON: DEXA 08/01/16 FINDINGS: Lumbar Spine: Bone Mineral Density 1.114 g/cm/cm,T score -0.5, normal, compared to -0.9 on prior exam. Left Hip: Bone Mineral Density 0.986 g/cm/cm,T score -0.2, normal, compared to 0 on prior exam. Left Femoral Neck: Bone Mineral Density 0.875 g/cm/cm, T score -1.2, minimal osteopenia, compared to -0.6 on prior exam . (T score greater or equal to -1.0: NORMAL) (T score from -1.1 to -2.4: OSTEOPENIA) (T score less than or equal to -2.5 to: OSTEOPOROSIS) Impression: Minimal osteopenia neck, progressive compared to prior exam. Patients with diagnosis of osteoporosis or osteopenia should have regular bone mineral density assess ment. For those eligible for Medicare, routine testing is allowed once every 2 years. Testing frequ ency can be increased for patients who have rapidly progressing disease or for those who are receivin g medical therapy to restore bone mass. Reviewed by: Richa Rascon MD on 03/13/2020 1:04 PM PDT Approved by: Richa Rascon MD on 03/13/2020 1:04 PM PDT Station ID: [id number]
== END 2020-03-13 12:28 | disposition home or self-care (01) ==
LOC: DI 12:27
PROVIDERS: ATTEND Internal Medicine Hematology & Oncology
DX: M85.88 Other specified disorders of bone density and structure, other site (principal)
CPT/HCPCS: 77080

== ENCOUNTER 2020-06-29 07:48 | Outpatient (CLI) | payer BC ==
[2020-06-29 15:20] LABS: BASOPHILS % (AUTO) 0.6 %; EOSINOPHILS # (AUTO) 0.1 10^3/uL (0.0-0.7); EOSINOPHILS % (AUTO) 1.9 %; HGB - HEMOGLOBIN 12.9 g/dL (12.0-16.0); LYMPHOCYTES # (AUTO) 3.1 10^3/uL (1.5-3.5); MEAN CORPUSCULAR HEMOGLOBIN 28.7 pg (27.0-31.0); MEAN CORPUSCULAR HGB CONC 32.6 g/dL (32.0-36.0); MEAN CORPUSCULAR VOLUME 88.2 fL (81.0-99.0); MEAN PLATELET VOLUME 10.1 fL (7.9-10.8); MONOCYTES # (AUTO) 0.6 10^3/uL (0.0-1.0); MONOCYTES % (AUTO) 8.4 %; PLT - PLATELET COUNT 285 10^3/uL (130-450); RED BLOOD COUNT 4.49 10^6/uL (4.20-5.40); RED CELL DISTRIBUTION WIDTH 13.3 % (12.0-15.0); WHITE BLOOD COUNT 6.8 x10^3/uL (4.8-10.8)
[2020-06-29 15:46] LABS: ALBUMIN 3.8 g/dL (3.2-5.5); ALBUMIN/GLOBULIN RATIO 1.2 (1.0-2.2); ALKALINE PHOSPHATASE 45 IU/L (42-121); ALT ALANINE AMINOTRANSFERASE 25 IU/L (10-60); AST ASPARTATE AMINOTRANSFERASE 22 IU/L (10-42); BILIRUBIN,TOTAL 0.6 mg/dL (0.2-1.0); BUN - BLOOD UREA NITROGEN 25 mg/dL (6-20); CALCIUM 10.1 mg/dL (8.5-10.3); CARBON DIOXIDE - CO2 26 mmol/L (21-32); CHLORIDE 103 mmol/L (101-111); CHOL/HDL RATIO 3.8 (<4.4); CHOLESTEROL 274 mg/dL; CREATININE 0.9 mg/dL (0.4-1.0); GLUCOSE 107 mg/dL (70-100); HDL CHOLESTEROL 73 mg/dL; LDL CHOLESTEROL,CALCULATED 169 mg/dL; LDL/HDL RATIO 2.3 (<4.4); SODIUM 138 mmol/L (135-145); TOTAL PROTEIN 7.1 g/dL (6.7-8.2); VLDL CHOLESTEROL 32 mg/dL
== END 2020-06-29 07:49 | disposition home or self-care (01) ==
LOC: LAB.S 07:48
PROVIDERS: ATTEND Registered Nurse
DX: I10 Essential (primary) hypertension (principal); E05.90 Thyrotoxicosis, unspecified without thyrotoxic crisis or storm; R73.01 Impaired fasting glucose
CPT/HCPCS: 36415; 80053; 80061; 83721; 84443; 85025

== ENCOUNTER 2021-02-26 13:21 | Outpatient (CLI) | payer BC ==
--- NOTE | 2021-02-27 13:54 | Mammography Report ---
BILATERAL DIGITAL SCREENING MAMMOGRAM 3D/2D: 02/26/2021 CLINICAL: Routine screening. Personal history of left breast cancer. Comparison is made to exams dated: 02/21/2020 mammogram, 02/17/2019 mammogram, 02/16/2018 mammogram, 04/2017 mammogram, 01/22/2016 mammogram, and 01/18/2015 mammogram - [facility]. Ther e are scattered fibroglandular elements in both breasts. There are benign post operative findings in the left breast. No significant masses, calcifications, or other findings are seen in either breast. There has been no significant interval change. IMPRESSION: BENIGN There is no mammographic evidence of malignancy. A 1 year screening mammogram is recommended. This exam was interpreted at Station ID: [id number]. NOTE: For mammograms, a report in lay terms will be sent to the patient. Approximately 15% of breast malignancies will not be visualized mammographically. In the management of a palpable breast mass, a negative mammogram must not discourage biopsy of a clinically suspicious lesion. Electronically Signed By: Mathew nichole/jayson:02/26/2021 16:01:41 ACR BI-RADS Category 2: Benign Finding(s) 3342F PARENCHYMAL PATTERN: (A) - The breast(s) demonstrate(s) scattered fibroglandular densities. BI-RADS CATEGORY: (2) - 2 RECOMMENDATION: (ANNUAL) - Recommend routine annual screening mammography. [id number] 1 year screening LATERALITY: (B)
== END 2021-02-26 13:22 | disposition home or self-care (01) ==
LOC: DI 13:21
DX: Z12.31 Encounter for screening mammogram for malignant neoplasm of breast (principal); Z85.3 Personal history of malignant neoplasm of breast

== ENCOUNTER 2022-04-08 09:34 | Outpatient (CLI) | payer BC ==
--- NOTE | 2022-04-09 10:20 | Mammography Report ---
UNILATERAL RIGHT DIGITAL DIAGNOSTIC MAMMOGRAM 3D/2D: 04/08/2022 CLINICAL: Patient returns today to evaluate an asymmetry in the right breast. Comparison is made to exams dated: 03/18/2022 mammogram, 02/26/2021 mammogram, 02/21/2020 mammogram, 01/26 mammogram, 02/16/2018 mammogram, and 02/03/2017 mammogram - [facility]. There are scattered areas of fibroglandular density in the right breast (category b / 25%-50% glandul ar tissue). There is a 0.4 cm oval equal density focal asymmetry in the right breast at 7 o'clock middle depth. This is seen in additional views. No other significant masses or calcifications are seen in the breast. IMPRESSION: INCOMPLETE: NEEDS ADDITIONAL IMAGING EVALUATION The 0.4 cm oval equal density focal asymmetry in the right breast resembles a cyst, a solid mass, or a lymph node and is indeterminate. An ultrasound is recommended for further evaluation and is schedu led to immediately follow this examination. This exam was interpreted at Station ID: [id number]. NOTE: For mammograms, a report in lay terms will be sent to the patient. Approximately 15% of breast malignancies will not be visualized mammographically. In the management of a palpable breast mass, a negative mammogram must not discourage biopsy of a clinically suspicious lesion. Electronically Signed By: Mathew Wright M.D. aty/:04/08/2022 11:07:58 ACR BI-RADS Category 0: Incomplete 3340F PARENCHYMAL PATTERN: (A) - The breast(s) demonstrate(s) scattered fibroglandular densities. BI-RADS CATEGORY: (0) - 0 Ultrasound [id number] Immediate follow-up LATERALITY: (R)
--- NOTE | 2022-04-09 10:20 | Ultrasound Report ---
LIMITED ULTRASOUND OF RIGHT BREAST: 04/08/2022 CLINICAL: Patient returns today to evaluate a focal asymmetry in the right breast. Comparison is made to exams dated: 04/08/2022 mammogram, 03/18/2022 mammogram, 02/26/2021 mammogram, 01/26 mammogram, 02/17/2019 mammogram, and 02/16/2018 mammogram - [facility]. Real-time ultrasound of the right breast 7-9 o'clock region was performed. Jeffery scale images of the real-time examination were reviewed. No significant abnormalities were seen sonographically in the right breast. IMPRESSION: PROBABLY BENIGN There is no abnormality seen in the right breast to correspond with the mammography finding described as a focal asymmetry in the posterior depth of the lateral right breast. This is probably benign. A follow-up right mammogram with possible ultrasound in 6 months is recommended to demonstrate stabil ity. Findings and recommendations were conveyed to the patient during today's evaluation. This exam was interpreted at Station ID: [id number]. Electronically Signed By: Mathew Wright M.D. aty/:04/08/2022 12:12:08 Ultrasound BI-RADS: 3 Probably benign BI-RADS CATEGORY: (3) - 3 Mammo and [place] [id number] 6 month follow-up LATERALITY: (R)
== END 2022-04-08 09:35 | disposition home or self-care (01) ==
LOC: DI 09:34
PROVIDERS: ATTEND Internal Medicine Hematology & Oncology
DX: R92.8 Other abnormal and inconclusive findings on diagnostic imaging of breast (principal)

== ENCOUNTER 2022-09-09 07:58 | Outpatient (CLI) | payer BC ==
[2022-09-09 14:51] LABS: BASOPHILS % (AUTO) 0.5 %; EOSINOPHILS # (AUTO) 0.2 10^3/uL (0.0-0.7); HCT - HEMATOCRIT 36.4 % (37.0-47.0); HGB - HEMOGLOBIN 11.4 g/dL (12.0-16.0); LYMPHOCYTES # (AUTO) 3.3 10^3/uL (1.5-3.5); LYMPHOCYTES % (AUTO) 40.1 %; MEAN CORPUSCULAR HEMOGLOBIN 27.7 pg (27.0-31.0); MEAN CORPUSCULAR HGB CONC 31.3 g/dL (32.0-36.0); MEAN CORPUSCULAR VOLUME 88.6 fL (81.0-99.0); MEAN PLATELET VOLUME 9.9 fL (7.9-10.8); MONOCYTES # (AUTO) 0.7 10^3/uL (0.0-1.0); MONOCYTES % (AUTO) 8.7 %; NEUTROPHILS % (AUTO) 48.5 %; PLT - PLATELET COUNT 279 10^3/uL (130-450); RED BLOOD COUNT 4.11 10^6/uL (4.20-5.40); RED CELL DISTRIBUTION WIDTH 12.8 % (12.0-15.0); WHITE BLOOD COUNT 8.2 x10^3/uL (4.8-10.8)
[2022-09-09 15:20] LABS: THYROID STIMULATING HORMONE 0.15 uIU/mL (0.34-5.60)
[2022-09-09 15:21] LABS: ALBUMIN 3.4 g/dL (3.2-5.5); ALBUMIN/GLOBULIN RATIO 0.9 (1.0-2.2); ALKALINE PHOSPHATASE 43 IU/L (42-121); ALT ALANINE AMINOTRANSFERASE 23 IU/L (10-60); AST ASPARTATE AMINOTRANSFERASE 20 IU/L (10-42); BILIRUBIN,TOTAL 0.7 mg/dL (0.2-1.0); BUN - BLOOD UREA NITROGEN 45 mg/dL (6-20); CALCIUM 9.7 mg/dL (8.5-10.3); CARBON DIOXIDE - CO2 25 mmol/L (21-32); CHLORIDE 104 mmol/L (101-111); CHOL/HDL RATIO 3.7 (<4.4); CHOLESTEROL 230 mg/dL; CREATININE 1.8 mg/dL (0.4-1.0); GFR - MDRD 29 (>89); GLUCOSE 107 mg/dL (70-100); HDL CHOLESTEROL 63 mg/dL; LDL CHOLESTEROL,CALCULATED 129 mg/dL; POTASSIUM 4.4 mmol/L (3.5-5.0); SODIUM 136 mmol/L (135-145); TOTAL PROTEIN 7.1 g/dL (6.7-8.2); TRIGLYCERIDES 192 mg/dL; VLDL CHOLESTEROL 38 mg/dL
[2022-09-09 15:55] LABS: FREE T4 (FREE THYROXINE) 1.23 ng/dL (0.58-1.64)
== END 2022-09-09 07:59 | disposition home or self-care (01) ==
LOC: LAB.S 07:58
PROVIDERS: ATTEND Registered Nurse
DX: I10 Essential (primary) hypertension (principal); E78.5 Hyperlipidemia, unspecified; E03.9 Hypothyroidism, unspecified
CPT/HCPCS: 36415; 80053; 80061; 83721; 84439; 84443; 85025

== ENCOUNTER 2022-11-04 21:13 | Outpatient (CLI) | payer BC ==
--- NOTE | 2022-11-05 08:24 | Ultrasound Report ---
PROCEDURE: Retroperitoneal INDICATIONS: KIDNEY DYSFUNCTION TECHNIQUE: Real-time scanning was performed of the retroperitoneal organs, with image documentation. COMPARISON: None. FINDINGS: Kidneys: Kidneys are slightly small. Right kidney measures 9.3 cm long; left kidney measures 9.1 cm long. Right renal cortical thickness is 1.2 cm; left renal cortical thickness is 1.0 cm. No solid m asses, hydronephrosis, or nephrolithiasis. Increased cortical echogenicity. Bladder: Pre-void bladder volume is 466mL. Post-void residual is 10 mL. Pre-void images demonstra te no intraluminal masses or stones. On pre-void images, both ureteral jets are noted with color Dop pler interrogation. (Of note, ureteral jets may not be detectable in up to 25% of cases due to insuf ficient differences in specific gravity between ureteral and bladder urine). Miscellaneous: No free abdominal fluid. IMPRESSION: Increased cortical echogenicity, most consistent with chronic parenchymal disease. Reviewed by: Isidro Bull on 11/05/2022 8:23 AM PDT Approved by: Isidro Bull on 11/05/2022 8:23 AM PDT Station ID: [id number]
== END 2022-11-04 21:14 | disposition home or self-care (01) ==
LOC: DI 21:13
PROVIDERS: ATTEND Internal Medicine Nephrology
DX: N18.4 Chronic kidney disease, stage 4 (severe) (principal); N32.0 Bladder-neck obstruction

== ENCOUNTER 2022-11-07 09:10 | Outpatient (CLI) | payer BC ==
[2022-11-07 15:08] LABS: CALCIUM 9.2 mg/dL (8.5-10.3); CREATININE 1.8 mg/dL (0.4-1.0); POTASSIUM 4.3 mmol/L (3.5-5.0)
== END 2022-11-07 09:11 | disposition home or self-care (01) ==
LOC: LAB.S 09:10
PROVIDERS: ATTEND Internal Medicine Nephrology
DX: N05.9 Unspecified nephritic syndrome with unspecified morphologic changes (principal)
CPT/HCPCS: 36415; 80048

== ENCOUNTER 2022-11-20 10:05 | Outpatient (CLI) | payer BC ==
--- NOTE | 2022-11-21 10:10 | Mammography Report ---
UNILATERAL RIGHT DIGITAL DIAGNOSTIC MAMMOGRAM 3D/2D: 11/20/2022 CLINICAL: Patient returns for a 6 month follow up of the right breast. Comparison is made to exams dated: 04/08/2022 mammogram, 02/26/2021 mammogram, 03/18/2022 mammogram, 01/26 mammogram, 02/17/2019 mammogram, and 02/16/2018 mammogram - [facility]. There are scattered areas of fibroglandular density in the right breast (category b / 25%-50% glandul ar tissue). Prior mammographic finding of 0.4 cm asymmetry is no longer seen in the right breast at 7 o'clock in the middle depth. Previously, there was no sonographic correlate to this finding. This was most consi stent with overlapping fibroglandular tissue. No significant masses, calcifications, or other findings are seen in the breast. IMPRESSION: NEGATIVE Resolution of previous mammography abnormality. There is no mammographic evidence of malignancy. Ret urn to annual mammogram screening schedule is recommended. Findings and recommendations were conveye d to the patient at time of exam. This exam was interpreted at Station ID: [id number]. NOTE: For mammograms, a report in lay terms will be sent to the patient. Approximately 15% of breast malignancies will not be visualized mammographically. In the management of a palpable breast mass, a negative mammogram must not discourage biopsy of a clinically suspicious lesion. Electronically Signed By: Crystal rodriguez/:11/20/2022 11:57:14 letter sent: No_Letter ACR BI-RADS Category 1: Negative 3341F PARENCHYMAL PATTERN: (A) - The breast(s) demonstrate(s) scattered fibroglandular densities. BI-RADS CATEGORY: (1) - 1 Mammogram [id number] return to screening LATERALITY: (B)
== END 2022-11-20 10:06 | disposition home or self-care (01) ==
LOC: DI 10:05
PROVIDERS: ATTEND Internal Medicine Hematology & Oncology
DX: Z08 Encounter for follow-up examination after completed treatment for malignant neoplasm (principal); Z85.3 Personal history of malignant neoplasm of breast

== ENCOUNTER 2022-11-26 16:35 | Outpatient (CLI) | payer BC ==
[2022-11-26 17:22] LABS: CALCIUM 8.8 mg/dL (8.5-10.3); CREATININE 1.8 mg/dL (0.4-1.0); PHOSPHORUS 2.7 mg/dL (2.5-4.6)
[2022-11-26 17:23] LABS: CREATININE,URINE 22.6 mg/dL; PROTEIN/CREATININE RATIO,URINE 4.3 (<=0.2)
[2022-11-26 20:31] LABS: ESTIMATED AVERAGE GLUCOSE 131 mg/dL (70-100); HEMOGLOBIN A1c% 6.2 % (4.27-6.07)
[2022-11-28 21:08] LABS: COMPLEMENT C3 129 mg/dL (82-167); COMPLEMENT C4 35 mg/dL (12-38)
[2022-11-29 14:08] LABS: ANTINUCLEAR ANTIBODIES IFA Negative (.)
[2022-11-29 18:08] LABS: MYELOPEROXIDASE (MPO) AB <0.2 units (0.0-0.9); PROTEINASE 3 (PR-3) AB <0.2 units (0.0-0.9)
[2022-12-02 17:08] LABS: A/G RATIO 1.1 (0.7-1.7); ALBUMIN 3.4 g/dL (2.9-4.4); ALPHA-1-GLOBULIN 0.2 g/dL (0.0-0.4); ALPHA-2-GLOBULIN 0.7 g/dL (0.4-1.0); GAMMA GLOBULIN 1.1 g/dL (0.4-1.8); GLOBULIN TOTAL 3.1 g/dL (2.2-3.9); IMMUNOGLOBULIN A (IGA) 293 mg/dL (87-352); IMMUNOGLOBULIN G (IGG) 1141 mg/dL (586-1602); IMMUNOGLOBULIN M (IGM) 41 mg/dL (26-217); M-SPIKE Not Observed g/dL (Not Observed); PROTEIN TOTAL 6.5 g/dL (6.0-8.5)
== END 2022-11-26 16:36 | disposition home or self-care (01) ==
LOC: LAB 16:35
PROVIDERS: ATTEND Internal Medicine Nephrology
DX: N05.9 Unspecified nephritic syndrome with unspecified morphologic changes (principal); N25.81 Secondary hyperparathyroidism of renal origin; E83.30 Disorder of phosphorus metabolism, unspecified; R80.9 Proteinuria, unspecified; D47.2 Monoclonal gammopathy; E11.9 Type 2 diabetes mellitus without complications; L93.2 Other local lupus erythematosus; I77.6 Arteritis, unspecified
CPT/HCPCS: 36415; 80048; 82570; 82784; 83036; 83516; 83970; 84100; 84155; 84156; 84165; 86038; 86160; 86334

== ENCOUNTER 2022-12-18 09:00 | Outpatient (CLI) | payer BC ==
[2022-12-18 14:54] LABS: BASOPHILS % (AUTO) 0.5 %; EOSINOPHILS # (AUTO) 0.1 10^3/uL (0.0-0.7); EOSINOPHILS % (AUTO) 1.2 %; HCT - HEMATOCRIT 33.2 % (37.0-47.0); HGB - HEMOGLOBIN 10.6 g/dL (12.0-16.0); LYMPHOCYTES # (AUTO) 2.4 10^3/uL (1.5-3.5); LYMPHOCYTES % (AUTO) 27.5 %; MEAN CORPUSCULAR HEMOGLOBIN 28.3 pg (27.0-31.0); MEAN CORPUSCULAR HGB CONC 31.9 g/dL (32.0-36.0); MEAN CORPUSCULAR VOLUME 88.8 fL (81.0-99.0); MEAN PLATELET VOLUME 10.2 fL (7.9-10.8); MONOCYTES # (AUTO) 0.6 10^3/uL (0.0-1.0); MONOCYTES % (AUTO) 7.3 %; NEUTROPHILS # (AUTO) 5.5 10^3/uL (1.5-6.6); NEUTROPHILS % (AUTO) 63.2 %; PLT - PLATELET COUNT 304 10^3/uL (130-450); RED BLOOD COUNT 3.74 10^6/uL (4.20-5.40); RED CELL DISTRIBUTION WIDTH 13.4 % (12.0-15.0); WHITE BLOOD COUNT 8.6 x10^3/uL (4.8-10.8)
[2022-12-18 15:10] LABS: BILIRUBIN,URINE NEGATIVE (NEGATIVE); GLUCOSE, URINE (UA) NEGATIVE (NEGATIVE); KETONES,URINE (UA) NEGATIVE (NEGATIVE); LEUKOCYTE ESTERASE, URINE NEGATIVE (NEGATIVE); NITRITE,URINE NEGATIVE (NEGATIVE); OCCULT BLOOD,URINE TRACE-LYSE (NEGATIVE); PROTEIN,URINE >=300 mg/dL (NEGATIVE); UROBILINOGEN,URINE 0.2 (NORMAL) E.U./dL (NORMAL)
[2022-12-18 15:13] LABS: CLARITY,URINE CLEAR (CLEAR)
[2022-12-18 15:15] LABS: BILIRUBIN,DIRECT 0.1 mg/dL (0.1-0.5); BILIRUBIN,INDIRECT 0.6 mg/dL; BILIRUBIN,TOTAL 0.7 mg/dL (0.2-1.0); CREATININE 1.9 mg/dL (0.4-1.0)
[2022-12-18 15:25] LABS: BACTERIA,URINE None Seen /HPF (None Seen); RBC,URINE 0-5 /HPF (0-5); SQUAMOUS EPITHELIAL CELL,UR RARE Squamous (<= Few); WBC,URINE 0-3 /HPF (0-5)
== END 2022-12-18 09:01 | disposition home or self-care (01) ==
LOC: LAB.S 09:00
PROVIDERS: ATTEND Internal Medicine Nephrology
DX: N18.4 Chronic kidney disease, stage 4 (severe) (principal); D63.1 Anemia in chronic kidney disease; D59.9 Acquired hemolytic anemia, unspecified; D70.9 Neutropenia, unspecified; N30.00 Acute cystitis without hematuria
CPT/HCPCS: 36415; 81001; 82247; 82248; 82565; 83010; 83615; 85025

== ENCOUNTER 2023-01-03 10:25 | Outpatient (CLI) | payer BC ==
[2023-01-03 10:46] LABS: BASOPHILS # (AUTO) 0.1 10^3/uL (0.0-0.1); BASOPHILS % (AUTO) 0.7 %; EOSINOPHILS # (AUTO) 0.1 10^3/uL (0.0-0.7); EOSINOPHILS % (AUTO) 1.3 %; HCT - HEMATOCRIT 31.5 % (37.0-47.0); HGB - HEMOGLOBIN 10.5 g/dL (12.0-16.0); LYMPHOCYTES # (AUTO) 2.5 10^3/uL (1.5-3.5); MEAN CORPUSCULAR HEMOGLOBIN 28.5 pg (27.0-31.0); MEAN CORPUSCULAR HGB CONC 33.3 g/dL (32.0-36.0); MEAN CORPUSCULAR VOLUME 85.6 fL (81.0-99.0); MEAN PLATELET VOLUME 9.5 fL (7.9-10.8); MONOCYTES # (AUTO) 0.6 10^3/uL (0.0-1.0); MONOCYTES % (AUTO) 8.4 %; NEUTROPHILS # (AUTO) 4.3 10^3/uL (1.5-6.6); NEUTROPHILS % (AUTO) 56.3 %; PLT - PLATELET COUNT 285 10^3/uL (130-450); RED BLOOD COUNT 3.68 10^6/uL (4.20-5.40); RED CELL DISTRIBUTION WIDTH 12.9 % (12.0-15.0); WHITE BLOOD COUNT 7.5 x10^3/uL (4.8-10.8)
[2023-01-03 11:01] LABS: CALCIUM 9.2 mg/dL (8.5-10.3); CREATININE 1.9 mg/dL (0.4-1.0); POTASSIUM 4.6 mmol/L (3.5-5.0)
== END 2023-01-03 10:26 | disposition home or self-care (01) ==
LOC: LAB 10:25
PROVIDERS: ATTEND Internal Medicine Nephrology
DX: N05.9 Unspecified nephritic syndrome with unspecified morphologic changes (principal); D70.9 Neutropenia, unspecified; D63.1 Anemia in chronic kidney disease
CPT/HCPCS: 36415; 80048; 85025

== ENCOUNTER 2023-02-03 14:02 | Outpatient (CLI) | payer BC ==
[2023-02-03 20:37] LABS: BASOPHILS % (AUTO) 0.2 %; EOSINOPHILS # (AUTO) 0.1 10^3/uL (0.0-0.7); EOSINOPHILS % (AUTO) 1.6 %; HCT - HEMATOCRIT 32.7 % (37.0-47.0); HGB - HEMOGLOBIN 10.5 g/dL (12.0-16.0); LYMPHOCYTES # (AUTO) 2.6 10^3/uL (1.5-3.5); LYMPHOCYTES % (AUTO) 30.6 %; MEAN CORPUSCULAR HEMOGLOBIN 28.4 pg (27.0-31.0); MEAN CORPUSCULAR HGB CONC 32.1 g/dL (32.0-36.0); MEAN CORPUSCULAR VOLUME 88.4 fL (81.0-99.0); MEAN PLATELET VOLUME 10.4 fL (7.9-10.8); MONOCYTES # (AUTO) 0.6 10^3/uL (0.0-1.0); MONOCYTES % (AUTO) 7.1 %; NEUTROPHILS # (AUTO) 5.2 10^3/uL (1.5-6.6); NEUTROPHILS % (AUTO) 60.4 %; PLT - PLATELET COUNT 294 10^3/uL (130-450); RED CELL DISTRIBUTION WIDTH 13.2 % (12.0-15.0); WHITE BLOOD COUNT 8.6 x10^3/uL (4.8-10.8)
[2023-02-03 20:54] LABS: CALCIUM 9.2 mg/dL (8.5-10.3); CREATININE 1.8 mg/dL (0.4-1.0); POTASSIUM 4.5 mmol/L (3.5-5.0)
== END 2023-02-03 14:03 | disposition home or self-care (01) ==
LOC: LAB.S 14:02
PROVIDERS: ATTEND Internal Medicine Nephrology
DX: M31.10 Thrombotic microangiopathy, unspecified (principal)
CPT/HCPCS: 36415; 80048; 85025

== ENCOUNTER 2023-02-23 11:19 | Emergency (ER) | payer BC ==
[2023-02-23 11:32] VITALS: BP 158/85
--- NOTE | 2023-02-23 11:59 | ED Physician Documentation ---
History of Present Illness - Stated complaint Stated Complaint: LT FT PX - Chief complaint Chief Complaint: Ext Problem - Additonal information Additional information: 57-year-old female presents emergency department for evaluation of 2 days of pain, swelling and erythema at the MCP joint of the left great toe. Denies any falls or trauma. Has tried Aspercreme and Epsom salt soaks without relief. Denies any fevers. She does report a history of chronic kidney disease with a last known GFR of 29 and a creatinine of 1.9. Followed by Dr. Munoz. 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 - Present Medications Home Medications: Ambulatory Orders Medication Instructions Recorded Confirmed Acetaminophen [Tylenol] 500 mg PO Q6H PRN 12/22/12 02/23/23 Ascorbic Acid [Vitamin C] 500 mg PO DAILY 12/22/12 02/23/23 Calcium Carbonate [Tums] 1,000 mg PO Q6HR PRN 12/22/12 02/23/23 Fish Oil/Dha/Epa [Fish Oil 1,200 1 each PO DAILY 12/22/12 02/23/23 mg Fish Oil] Multivitamin [Multivitamins] 1 each PO DAILY 12/22/12 02/23/23 Vitamin B Complex 500 each PO DAILY 12/28/13 02/23/23 Cholecalciferol (Vitamin D3) 1,000 unit PO DAILY 06/28/14 02/23/23 [Vitamin D3] Estradiol [Yuvafem] 10 mcg VG .QWK 07/13/19 02/23/23 Carvedilol [Coreg] 1.5 mg PO BID 01/14/23 02/23/23 Famotidine [Pepcid] 20 mg PO UD 02/04/23 02/23/23 cephALEXin [Keflex] 500 mg PO BID #14 cap 02/23/23 - Allergies Allergies/Adverse Reactions: Allergies Allergy/AdvReac Type Severity Reaction Status Date / Time Penicillins Allergy Rash Verified 02/23/23 12:20 NSAIDS (Non-Steroidal AdvReac Unknown Verified 02/23/23 12:20 Anti-Inflamma - Social History Does the pt smoke?: No Smoking Status: Never smoker Does the pt drink ETOH?: No Does the pt have substance abuse?: No - Immunizations Immunizations are current?: No Immunizations: Other immun not current - POLST Patient has POLST: No PD ED PE NORMAL - General General: Alert and oriented X 3, No acute distress - Cardiac Cardiac: RRR, No murmur - Respiratory Respiratory: Clear bilaterally - Extremities Extremities: Other (Swelling at MCP joint surrounding the left great toe. Positive for induration and erythema. No fluctuance. No lymphangitis.) - Neuro Neuro: Alert and oriented X 3 Eye Opening: Spontaneous Motor: Obeys Commands Verbal: Oriented GCS Score: 15 Results - Vitals Vitals: Vital Signs - 24 hr 02/23/23 11:26 Temperature 37.1 C Heart Rate 83 Respiratory 16 Rate Blood Pressure 158/85 H O2 Saturation 99 Oxygen O2 Source Room air - Labs Labs: Laboratory Tests 02/23/23 02/23/23 12:06 12:06 WBC 11.0 H RBC 3.76 L Hgb 10.6 L Hct 33.0 L MCV 87.8 MCH 28.2 MCHC 32.1 RDW 12.8 Plt Count 254 MPV 9.9 Neut # (Auto) 7.7 H Lymph # (Auto) 2.1 Mcleod # (Auto) 1.0 Eos # (Auto) 0.1 Baso # (Auto) 0.0 Absolute Nucleated RBC 0.00 Nucleated RBC % 0.0 Sodium 137 Potassium 4.2 Chloride 107 Carbon Dioxide 25 Anion Gap 5.0 L BUN 29 H Creatinine 2.0 H Estimated GFR (MDRD) 26 L Glucose 119 H Uric Acid 8.3 H Calcium 9.5 - Rads (name of study) left foot Relevant Findings:: Final report received (No acute abnormality) PD Medical Decision Making - ED course Complexity details: reviewed results, re-evaluated patient, d/w patient ED course: 57-year-old female here for 2 days of swelling at the MCP joint of the left great toe. No history of diabetes but she does have chronic kidney disease being followed by outpatient railroad firer. No fevers. X-ray of the foot as interpreted by the radiologist showed no acute bony abnormalities. Clinically history and exam is suggestive of both cellulitis as well as gout. Her uric acid today is elevated at 8.6 but this is difficult to interpret in the setting of chronic kidney disease. Her BUN and creatinine today are noted to be elevated with a GFR of 26 but per patient this is approximately baseline. As such at this time I will give her a single dose of Decadron, and oral steroid for the treatment of gout. Other typical medications used in the treatment of gout are not safe in the setting of chronic kidney disease. As I also suspect she may have a superficial bacterial infection she will be started on Keflex 500 mg twice daily for 1 week. This is renally dosed. She will follow closely with her PCP and railroad firer. The usual emergent return precautions worsening symptoms was discussed. Departure - Departure Disposition: 01 Home, Self Care Clinical Impression: Cellulitis of foot, left, Elevated uric acid in blood, CKD (chronic kidney disease) stage 4, GFR 15-29 ml/min Condition: Stable Record reviewed to determine appropriate education?: Yes Prescriptions: cephALEXin [Keflex] 500 mg PO BID #14 cap Comments: Rashida you have swelling around the MCP joint of your left great toe. Clinically this could be either gout or cellulitis. Your uric acid was elevated today at 8.6. This is difficult to interpret as it may be elevated simply due to chronic kidney disease. However we have given you a one-time dose of Decadron, and oral steroid to help with pain and inflammation. Because I think is important to treat for the possibility of cellulitis we are also starting you on Keflex that you will take twice daily for the next week. This is being renally dosed. With both of these medications I would expect your pain and symptoms to be improving over the next week or so. If not markedly improving, you develop increased redness, swelling, have fevers or red streaking please return immediately to the ER for repeat evaluation. Forms: PCP List
[2023-02-23 12:29] LABS: BASOPHILS % (AUTO) 0.4 %; EOSINOPHILS # (AUTO) 0.1 10^3/uL (0.0-0.7); EOSINOPHILS % (AUTO) 0.7 %; HGB - HEMOGLOBIN 10.6 g/dL (12.0-16.0); LYMPHOCYTES # (AUTO) 2.1 10^3/uL (1.5-3.5); LYMPHOCYTES % (AUTO) 19.3 %; MEAN CORPUSCULAR HEMOGLOBIN 28.2 pg (27.0-31.0); MEAN CORPUSCULAR HGB CONC 32.1 g/dL (32.0-36.0); MEAN CORPUSCULAR VOLUME 87.8 fL (81.0-99.0); MEAN PLATELET VOLUME 9.9 fL (7.9-10.8); MONOCYTES % (AUTO) 9.1 %; NEUTROPHILS # (AUTO) 7.7 10^3/uL (1.5-6.6); NEUTROPHILS % (AUTO) 70.1 %; PLT - PLATELET COUNT 254 10^3/uL (130-450); RED BLOOD COUNT 3.76 10^6/uL (4.20-5.40); RED CELL DISTRIBUTION WIDTH 12.8 % (12.0-15.0)
--- NOTE | 2023-02-23 12:34 | XRAY Report ---
PROCEDURE: Foot 3 View LT INDICATIONS: Trauma TECHNIQUE: 3 views of the foot were acquired. COMPARISON: None. FINDINGS: Bones: No fractures or dislocations. No suspicious bony lesions. Soft tissues: No suspicious soft tissue calcifications or masses. IMPRESSION: No acute bony abnormality. Reviewed by: Evans Nguyen MD on 02/23/2023 11:33 AM AKRAVEN Approved by: Evans Nguyen MD on 02/23/2023 11:33 AM AKDT Station ID: [id number]
[2023-02-23 12:43] LABS: CALCIUM 9.5 mg/dL (8.5-10.3); POTASSIUM 4.2 mmol/L (3.5-4.5); URIC ACID 8.3 mg/dL (2.3-6.6)
[2023-02-23] MEDS ORDERED: DEXAMETHASONE 10 MG/ML VIAL PO STA (13:00)
[2023-02-23] MEDS ORDERED: CHERRY SYRUP 10 ML UDC PO ONE (13:00)
== END 2023-02-23 13:16 | disposition home or self-care (01) ==
LOC: ED 11:19
DX: N18.4 Chronic kidney disease, stage 4 (severe) (principal); I12.9 Hypertensive chronic kidney disease with stage 1 through stage 4 chronic kidney disease, or unspecified chronic kidney disease; L03.116 Cellulitis of left lower limb
CPT/HCPCS: 36415; 73630; 80048; 84550; 85025; 99284; A9270

== ENCOUNTER 2023-03-10 11:15 | Outpatient (CLI) | payer BC ==
[2023-03-10 14:25] LABS: BASOPHILS % (AUTO) 0.5 %; EOSINOPHILS # (AUTO) 0.1 10^3/uL (0.0-0.7); EOSINOPHILS % (AUTO) 1.2 %; HGB - HEMOGLOBIN 9.7 g/dL (12.0-16.0); LYMPHOCYTES # (AUTO) 2.7 10^3/uL (1.5-3.5); LYMPHOCYTES % (AUTO) 31.2 %; MEAN CORPUSCULAR HEMOGLOBIN 27.6 pg (27.0-31.0); MEAN CORPUSCULAR HGB CONC 31.3 g/dL (32.0-36.0); MEAN CORPUSCULAR VOLUME 88.3 fL (81.0-99.0); MEAN PLATELET VOLUME 9.3 fL (7.9-10.8); MONOCYTES # (AUTO) 0.7 10^3/uL (0.0-1.0); MONOCYTES % (AUTO) 7.7 %; NEUTROPHILS % (AUTO) 59.2 %; PLT - PLATELET COUNT 366 10^3/uL (130-450); RED BLOOD COUNT 3.51 10^6/uL (4.20-5.40); RED CELL DISTRIBUTION WIDTH 12.6 % (12.0-15.0); WHITE BLOOD COUNT 8.5 x10^3/uL (4.8-10.8)
[2023-03-10 14:47] LABS: CALCIUM 9.2 mg/dL (8.5-10.3); CREATININE 1.5 mg/dL (0.6-1.3); POTASSIUM 4.9 mmol/L (3.5-4.5)
== END 2023-03-10 11:16 | disposition home or self-care (01) ==
LOC: LAB.S 11:15
PROVIDERS: ATTEND Internal Medicine Nephrology
DX: E11.9 Type 2 diabetes mellitus without complications (principal); N05.9 Unspecified nephritic syndrome with unspecified morphologic changes; D70.9 Neutropenia, unspecified; D63.1 Anemia in chronic kidney disease
CPT/HCPCS: 36415; 80048; 85025

== ENCOUNTER 2023-03-24 11:19 | Outpatient (CLI) | payer BC ==
--- NOTE | 2023-03-25 11:11 | Mammography Report ---
BILATERAL DIGITAL SCREENING MAMMOGRAM 3D/2D: 03/24/2023 CLINICAL: Routine screening. Personal history of left breast cancer. Comparison is made to exams dated: 11/20/2022 mammogram, 04/08/2022 mammogram, 03/18/2022 mammogram, 02/26/2021 mammogram, 02/21/2020 mammogram, and 02/17/2019 mammogram - [facility]. There are scattered areas of fibroglandular density in both breasts (category b / 25%-50% glandular t issue). There are benign post operative findings in the left breast. No significant masses, calcifications, or other findings are seen in either breast. There has been no significant interval change. IMPRESSION: BENIGN There is no mammographic evidence of malignancy. A 1 year screening mammogram is recommended. This exam was interpreted at Station ID: [id number]. NOTE: For mammograms, a report in lay terms will be sent to the patient. Approximately 15% of breast malignancies will not be visualized mammographically. In the management of a palpable breast mass, a negative mammogram must not discourage biopsy of a clinically suspicious lesion. Electronically Signed By: Mathew [email or web address]:03/24/2023 17:57:33 letter sent: No_Letter ACR BI-RADS Category 2: Benign Finding(s) 3342F PARENCHYMAL PATTERN: (A) - The breast(s) demonstrate(s) scattered fibroglandular densities. BI-RADS CATEGORY: (2) - 2 Mammogram [id number] 1 year screening LATERALITY: (B)
== END 2023-03-24 11:20 | disposition home or self-care (01) ==
LOC: DI 11:19
DX: Z12.31 Encounter for screening mammogram for malignant neoplasm of breast (principal); Z85.3 Personal history of malignant neoplasm of breast

== ENCOUNTER 2023-04-17 08:52 | Outpatient (CLI) | payer BC ==
[2023-04-17 09:23] LABS: PHOSPHORUS 4.6 mg/dL (2.5-5.0); URIC ACID 9.7 mg/dL (2.3-6.6)
[2023-04-17 09:46] LABS: FERRITIN 165.6 ng/mL (11.0-306.8)
== END 2023-04-17 08:53 | disposition home or self-care (01) ==
LOC: LAB 08:52
PROVIDERS: ATTEND Internal Medicine Nephrology
DX: N25.81 Secondary hyperparathyroidism of renal origin (principal); D50.0 Iron deficiency anemia secondary to blood loss (chronic); E83.30 Disorder of phosphorus metabolism, unspecified; M10.00 Idiopathic gout, unspecified site; D51.9 Vitamin B12 deficiency anemia, unspecified
CPT/HCPCS: 36415; 82607; 82728; 82746; 83540; 83970; 84100; 84466; 84550

== ENCOUNTER 2023-11-06 08:45 | Outpatient (CLI) | payer BC ==
[2023-11-06 14:33] LABS: BASOPHILS % (AUTO) 0.5 %; EOSINOPHILS # (AUTO) 0.1 10^3/uL (0.0-0.7); EOSINOPHILS % (AUTO) 1.9 %; HCT - HEMATOCRIT 31.5 % (37.0-47.0); HGB - HEMOGLOBIN 9.9 g/dL (12.0-16.0); LYMPHOCYTES % (AUTO) 35.4 %; MEAN CORPUSCULAR HEMOGLOBIN 28.5 pg (27.0-31.0); MEAN CORPUSCULAR HGB CONC 31.4 g/dL (32.0-36.0); MEAN CORPUSCULAR VOLUME 90.8 fL (81.0-99.0); MEAN PLATELET VOLUME 10.3 fL (7.9-10.8); MONOCYTES # (AUTO) 0.4 10^3/uL (0.0-1.0); MONOCYTES % (AUTO) 7.6 %; NEUTROPHILS # (AUTO) 3.1 10^3/uL (1.5-6.6); NEUTROPHILS % (AUTO) 54.4 %; PLT - PLATELET COUNT 230 10^3/uL (130-450); RED BLOOD COUNT 3.47 10^6/uL (4.20-5.40); RED CELL DISTRIBUTION WIDTH 13.2 % (12.0-15.0); WHITE BLOOD COUNT 5.8 x10^3/uL (4.8-10.8)
[2023-11-06 14:57] LABS: CALCIUM 9.6 mg/dL (8.5-10.3); POTASSIUM 4.8 mmol/L (3.5-4.5); URIC ACID 8.4 mg/dL (2.3-6.6)
== END 2023-11-06 08:46 | disposition home or self-care (01) ==
LOC: LAB.S 08:45
PROVIDERS: ATTEND Internal Medicine Nephrology
DX: N05.9 Unspecified nephritic syndrome with unspecified morphologic changes (principal); N25.81 Secondary hyperparathyroidism of renal origin; M10.00 Idiopathic gout, unspecified site; D70.9 Neutropenia, unspecified; D63.1 Anemia in chronic kidney disease
CPT/HCPCS: 36415; 80048; 83970; 84550; 85025

== ENCOUNTER 2023-12-10 09:46 | Outpatient (CLI) | payer BC ==
[2023-12-10 16:11] LABS: ALBUMIN 3.8 g/dL (3.2-5.5); ALBUMIN/GLOBULIN RATIO 1.4 (1.0-2.2); BILIRUBIN,TOTAL 0.4 mg/dL (0.2-1.0); CALCIUM 9.2 mg/dL (8.5-10.3); CREATININE 2.1 mg/dL (0.6-1.3); TOTAL PROTEIN 6.5 g/dL (6.4-8.9)
== END 2023-12-10 09:47 | disposition home or self-care (01) ==
LOC: LAB.S 09:46
PROVIDERS: ATTEND Internal Medicine Nephrology
DX: E11.9 Type 2 diabetes mellitus without complications (principal); N05.9 Unspecified nephritic syndrome with unspecified morphologic changes
CPT/HCPCS: 36415; 80053

== ENCOUNTER 2023-12-12 08:00 | Outpatient (CLI) | payer BC ==
[2023-12-12 16:21] LABS: % IRON SATURATION 47 % (20-50); ALBUMIN 3.8 g/dL (3.2-5.5); ALBUMIN/GLOBULIN RATIO 1.4 (1.0-2.2); ALKALINE PHOSPHATASE 44 IU/L (42-121); ALT ALANINE AMINOTRANSFERASE 16 IU/L (10-60); AST ASPARTATE AMINOTRANSFERASE 17 IU/L (10-42); BILIRUBIN,TOTAL 0.5 mg/dL (0.2-1.0); BUN - BLOOD UREA NITROGEN 41 mg/dL (6-20); CALCIUM 9.3 mg/dL (8.5-10.3); CARBON DIOXIDE - CO2 22 mmol/L (21-32); CHLORIDE 111 mmol/L (101-111); CHOL/HDL RATIO 2.8 (<4.4); CHOLESTEROL 211 mg/dL; GFR - MDRD 26 (>89); GLUCOSE 89 mg/dL (74-104); HDL CHOLESTEROL 75 mg/dL; IRON 124 ug/dL (50-212); LDL CHOLESTEROL,CALCULATED 119 mg/dL; LDL/HDL RATIO 1.6 (<4.4); POTASSIUM 4.3 mmol/L (3.5-4.5); SODIUM 140 mmol/L (135-145); TOTAL IRON BINDING CAPACITY 265 ug/dL (250-450); TOTAL PROTEIN 6.5 g/dL (6.4-8.9); TRANSFERRIN 189 mg/dL (203-362); TRIGLYCERIDES 84 mg/dL (48-352); VLDL CHOLESTEROL 17 mg/dL
== END 2023-12-12 08:01 | disposition home or self-care (01) ==
LOC: LAB.S 08:00
PROVIDERS: ATTEND Internal Medicine Nephrology
DX: N05.9 Unspecified nephritic syndrome with unspecified morphologic changes (principal); D50.0 Iron deficiency anemia secondary to blood loss (chronic); E78.5 Hyperlipidemia, unspecified
CPT/HCPCS: 36415; 80053; 80061; 82728; 83540; 83721; 84466

== ENCOUNTER 2024-01-13 08:20 | Outpatient (CLI) | payer BC ==
[2024-01-13 15:24] LABS: BASOPHILS % (AUTO) 0.7 %; EOSINOPHILS # (AUTO) 0.1 10^3/uL (0.0-0.7); EOSINOPHILS % (AUTO) 1.6 %; HCT - HEMATOCRIT 32.3 % (37.0-47.0); HGB - HEMOGLOBIN 9.8 g/dL (12.0-16.0); LYMPHOCYTES # (AUTO) 2.3 10^3/uL (1.5-3.5); LYMPHOCYTES % (AUTO) 39.3 %; MEAN CORPUSCULAR HEMOGLOBIN 27.6 pg (27.0-31.0); MEAN CORPUSCULAR HGB CONC 30.3 g/dL (32.0-36.0); MEAN PLATELET VOLUME 10.7 fL (7.9-10.8); MONOCYTES # (AUTO) 0.5 10^3/uL (0.0-1.0); MONOCYTES % (AUTO) 8.1 %; NEUTROPHILS # (AUTO) 2.9 10^3/uL (1.5-6.6); NEUTROPHILS % (AUTO) 50.1 %; PLT - PLATELET COUNT 242 10^3/uL (130-450); RED BLOOD COUNT 3.55 10^6/uL (4.20-5.40); WHITE BLOOD COUNT 5.8 x10^3/uL (4.8-10.8)
[2024-01-13 15:48] LABS: CALCIUM 9.3 mg/dL (8.5-10.3); CREATININE 2.2 mg/dL (0.6-1.3); POTASSIUM 4.7 mmol/L (3.5-4.5)
== END 2024-01-13 08:21 | disposition home or self-care (01) ==
LOC: LAB.S 08:20
PROVIDERS: ATTEND Internal Medicine Nephrology
DX: E11.9 Type 2 diabetes mellitus without complications (principal); N05.9 Unspecified nephritic syndrome with unspecified morphologic changes; D70.9 Neutropenia, unspecified; D63.1 Anemia in chronic kidney disease
CPT/HCPCS: 36415; 80048; 85025

== ENCOUNTER 2024-02-11 17:53 | Outpatient (CLI) | payer BC ==
[2024-02-11 18:09] LABS: HCT - HEMATOCRIT 29.3 % (37.0-47.0); HGB - HEMOGLOBIN 9.6 g/dL (12.0-16.0); MEAN CORPUSCULAR HEMOGLOBIN 28.6 pg (27.0-31.0); MEAN CORPUSCULAR HGB CONC 32.8 g/dL (32.0-36.0); MEAN CORPUSCULAR VOLUME 87.2 fL (81.0-99.0); MEAN PLATELET VOLUME 9.5 fL (7.9-10.8); RED BLOOD COUNT 3.36 10^6/uL (4.20-5.40); RED CELL DISTRIBUTION WIDTH 12.9 % (12.0-15.0); WHITE BLOOD COUNT 9.1 x10^3/uL (4.8-10.8)
[2024-02-11 18:23] LABS: CALCIUM 9.1 mg/dL (8.5-10.3); CREATININE 2.3 mg/dL (0.6-1.3); POTASSIUM 4.3 mmol/L (3.5-4.5)
== END 2024-02-11 17:54 | disposition home or self-care (01) ==
LOC: LAB 17:53
PROVIDERS: ATTEND Internal Medicine Nephrology
DX: N05.9 Unspecified nephritic syndrome with unspecified morphologic changes (principal); D70.9 Neutropenia, unspecified; D63.1 Anemia in chronic kidney disease
CPT/HCPCS: 36415; 80048; 85027

== ENCOUNTER 2024-03-15 07:38 | Outpatient (CLI) | payer BC ==
[2024-03-15 15:20] LABS: BASOPHILS % (AUTO) 0.7 %; EOSINOPHILS # (AUTO) 0.1 10^3/uL (0.0-0.7); EOSINOPHILS % (AUTO) 1.8 %; HCT - HEMATOCRIT 31.9 % (37.0-47.0); HGB - HEMOGLOBIN 9.9 g/dL (12.0-16.0); LYMPHOCYTES # (AUTO) 2.2 10^3/uL (1.5-3.5); LYMPHOCYTES % (AUTO) 36.2 %; MEAN CORPUSCULAR HEMOGLOBIN 28.2 pg (27.0-31.0); MEAN CORPUSCULAR VOLUME 90.9 fL (81.0-99.0); MEAN PLATELET VOLUME 10.7 fL (7.9-10.8); MONOCYTES # (AUTO) 0.4 10^3/uL (0.0-1.0); MONOCYTES % (AUTO) 7.1 %; NEUTROPHILS # (AUTO) 3.3 10^3/uL (1.5-6.6); PLT - PLATELET COUNT 224 10^3/uL (130-450); RED BLOOD COUNT 3.51 10^6/uL (4.20-5.40); RED CELL DISTRIBUTION WIDTH 12.9 % (12.0-15.0); WHITE BLOOD COUNT 6.1 x10^3/uL (4.8-10.8)
[2024-03-15 15:26] LABS: CALCIUM 9.1 mg/dL (8.5-10.3); CREATININE 2.2 mg/dL (0.6-1.3); POTASSIUM 4.9 mmol/L (3.5-4.5)
== END 2024-03-15 07:39 | disposition home or self-care (01) ==
LOC: LAB.S 07:38
PROVIDERS: ATTEND Internal Medicine Nephrology
DX: D70.9 Neutropenia, unspecified (principal); D63.1 Anemia in chronic kidney disease; N05.9 Unspecified nephritic syndrome with unspecified morphologic changes
CPT/HCPCS: 36415; 80048; 85025

== ENCOUNTER 2024-04-12 13:29 | Outpatient (CLI) | payer BC ==
--- NOTE | 2024-04-14 15:30 | Mammography Report ---
BILATERAL DIGITAL SCREENING MAMMOGRAM 3D/2D WITH EXAGGERATED CC: 04/12/2024 CLINICAL: Routine screening. Personal history of left breast cancer. Comparison is made to exams dated: 11/20/2022 mammogram, 03/24/2023 mammogram, 04/08/2022 mammogram, mammogram, 02/26/2021 mammogram, and 02/21/2020 mammogram - [facility]. There are scattered areas of fibroglandular density (category b / 25%-50% glandular tissue). There are benign post operative findings in the left breast. No significant masses, calcifications, or other findings are seen in either breast. There has been no significant interval change. IMPRESSION: BENIGN There is no mammographic evidence of malignancy. A 1 year screening mammogram is recommended. This exam was interpreted at Station ID: [id number]. NOTE: For mammograms, a report in lay terms will be sent to the patient. Approximately 15% of breast malignancies will not be visualized mammographically. In the management of a palpable breast mass, a negative mammogram must not discourage biopsy of a clinically suspicious lesion. Electronically Signed By: Елена Garcia M.D., Ph.D. eb/penrad:04/13/2024 10:01:45 ACR BI-RADS Category 2: Benign 3342F PARENCHYMAL PATTERN: (A) - The breast(s) demonstrate(s) scattered fibroglandular densities. BI-RADS CATEGORY: (2) - 2 RECOMMENDATION: (ANNUAL) - Recommend routine annual screening mammography. [id number] 1 year screening LATERALITY: (B)
== END 2024-04-12 13:30 | disposition home or self-care (01) ==
LOC: DI 13:29
PROVIDERS: ATTEND Internal Medicine Hematology & Oncology
DX: Z12.31 Encounter for screening mammogram for malignant neoplasm of breast (principal); Z85.3 Personal history of malignant neoplasm of breast